=== PATIENT | female | born 1955 | race Caucasian/White ===

== ENCOUNTER 2018-05-16 14:15 | Emergency (ER) | payer SELFPAY ==
[2018-05-16 14:15] VITALS: BP 128/84; PULSE 111; RESP 16; TEMP 36.6; O2SAT 94; BMI 23.9
--- NOTE | 2018-05-16 14:35 | RAD_ITS ---
STUDY: X-RAY - LEFT FOOT CLINICAL: Female, 62 years old. STEPPED OFF STEPS AND SLIPPED THIS AFTERNOON, LATERAL REDNESS, PREVIOUSLY BROKE 3 TOES A FEW YEARS AGO TECHNIQUE: 3 view(s) of the foot. COMPARISON: None. FINDINGS: Normal talus, calcaneus, and tarsal bones. Normal visualized subtalar, talonavicular, calcaneocuboid, tarsal and tarsometatarsal articulations. Normal metatarsi. Normal metatarsophalangeal joint of the great toe. Normal tibial and fibular sesamoid bones. Normal interphalangeal joint of the great toe. Normal phalanges of the great toe. Normal second through fifth metatarsophalangeal joints. Normal interphalangeal joints and phalanges of the lesser toes. The soft tissue structures are unremarkable. RAD/Foot min 3 Views IMPRESSION: Normal x-ray examination of the foot. Electronically Signed: Aleksandr Golden MD at 14:58 EDT Tel , Service support ,
--- NOTE | 2018-05-16 15:24 | ED.DCSUM_ITS ---
- ER Visit Summary Date of Service: 05/16/18 Chief Complaint: [Injury to left foot] History of Present Illness: The patient is a 62 F [presents the emergency department with complaint of an injury to her left foot and ankle that occurred approximately 1 PM today when she was walking her dog. Patient states that she slipped on some wet grass twisting her foot and ankle. Patient able to bear some weight but very painful. Patient denies any other injuries.] Physical Examination: [HEENT-PERRLA, EOMI. Cranial nerves II through XII grossly intact. TMs clear. Mucous membranes moist. No adenopathy. Cardiovascular-regular rate and rhythm without murmur or ectopy Lungs-clear to auscultation, chest wall stable without crepitus or subcu emphysema Abdomen-normoactive bowel sounds, soft, nontender, no rebound or rigidity, no peritoneal signs. Extremities-intact ?4, normal range of motion, normal pulses. Left foot and ankle-patient has tenderness palpation over the dorsal lateral aspect of the foot. Patient has no tenderness at the proximal fibular head. She has no tende rness over the medial or lateral malleolus. She does have some mild tenderness over the base of the fifth metatarsal. No obvious deformity. There is no ecchymosis or bruising. She is nervously intact distally. Test Results: [The left foot obtained were normal] Emergency Department Course and Treatment: [Patient was given a postop shoe] Treatment Plan: [Patient advised to ice and elevate the extremity. Patient will take Tylenol for discomfort at home.] Disposition: [Discharged home in stable condition. Patient advised to follow-up with primary care physician within next 5-7 days.] Impression: [Left foot sprain] This note was generated with [employer] dictation software. It may contain incorrect words, spelling, and punctuation that were not noted in review of the chart prior to signing ED Disposition - Plan for ED Patient: Chief Complaint: Lower Extremity Injury Referrals: Tez Lee MD [Primary Care Provider] -
--- NOTE | 2018-05-16 15:24 | ED.DEP ---
ED Disposition - Plan for ED Patient: Chief Complaint: Lower Extremity Injury Instructions: ED Sprain Foot Referrals: Tez Lee MD [Primary Care Provider] - 5-7 Days
[2018-05-16 15:30] VITALS: RESP 14
== END 2018-05-16 15:30 | disposition home or self-care (01) ==
PROVIDERS: Emergency Provider Emergency Medicine; Family Provider Family Medicine; PCP Family Medicine
DX: S93.602A Unspecified sprain of left foot, initial encounter (principal); W01.0XXA Fall on same level from slipping, tripping and stumbling without subsequent striking against object, initial encounter; Y93.K1 Activity, walking an animal; Y92.9 Unspecified place or not applicable; Y99.8 Other external cause status; J44.9 Chronic obstructive pulmonary disease, unspecified; Z72.0 Tobacco use
CPT/HCPCS: 73630; 99282

== ENCOUNTER 2018-09-17 09:02 | Inpatient (IN) | payer SELFPAY ==
[2018-09-17] VITALS (10 sets, daily range): BP systolic 94–137; BP diastolic 53–74; PULSE 84–112; RESP 15–20; TEMP 36.1–38.3; O2SAT 92–98; BMI 24.6; BMI 22.0; BMI 22.6
--- NOTE | 2018-09-17 09:14 | RAD_ITS ---
STUDY: X-RAY CHEST REASON FOR EXAM: Female, 62 years old. Flulike symptoms. Cough and fever. TECHNIQUE: Single AP portable view of the chest. COMPARISON: None. FINDINGS: EKG electrodes are seen. There is evidence of emphysematous changes in both lungs worse in the right upper lobe with bullous changes. Increased markings at the lung bases suggestive of bibasilar scarring. Prior surgery in the medial left upper lobe. Blunting of the left costophrenic angle. Normal size heart. Normal mediastinum and bel. Normal visualized pulmonary arteries. There is atherosclerotic calcification of the aortic arch with tortuosity. There is a dextroscoliosis of the thoracic spine. Prior jose fixation of the thoracic spine. Normal visualized ribs, clavicles, and shoulders. There is no demonstrated abnormality of the visualized soft tissue structures of the upper abdomen. RAD/Chest 1 View (Portable) IMPRESSION: Hyperinflation. Emphysematous changes worse in the right upper lobe with bullous formation. Prior surgical changes in the left upper lobe and left apical pleural thickening and blunting of the left costophrenic angle. Electronically Signed: Thee Vu MD at 9:46 EST , Service support ,
--- NOTE | 2018-09-17 09:15 | EKG12_ITS ---
Test Reason : Blood Pressure : / mmHG Vent. Rate : 097 BPM Atrial Rate : 097 BPM P-R Int : 126 ms QRS Dur : 074 ms QT Int : 354 ms P-R-T Axes : 076 003 067 degrees QTc Int : 449 ms Normal sinus rhythm Possible Left atrial enlargement Borderline ECG Confirmed by LORENZO SCHROEDER, FRANK ([id number]), managing editor JESSE MEEKS ([id number]) on 09/19/2018 1:50:08 PM Referred By: CONCEPCION Confirmed By:FRANK VENTURA MD
--- NOTE | 2018-09-17 09:18 | ED.DCSUM_ITS ---
- ER Visit Summary Date of Service: 09/17/18 Chief Complaint: Shortness of breath History of Present Illness: The patient is a 62 F with shortness of breath for about a week gradually getting worse, she had a temperature of 104 yesterday. She was found to be hypoxic per EMS. She was diagnosed with COPD in the past she is not on steroids. No abdominal pain or urinary symptoms. No headache neck pain or neck stiffness Physical Examination: She appears in some distress, she is on 2 L nasal cannula Dry mucous membranes, no obvious facial deformity, some rhinorrhea No C-spine tenderness supple neck. Regular rate and rhythm without any obvious murmurs Patient has diminished breath sounds, bilateral wheezing Abdomen soft and nontender no guarding or rebound Moves all extremities without any difficulty or pain. Skin does not show any obvious rashes or lesions, no trauma. Alert oriented ?3 with no gross focal deficit Emergency Department Course and Treatment: Patient was given nebulizers, she is found to have influenza A. She remains hypoxic and oxygen dependent, therefore patient will be admitted. Symptoms started a week ago thus I do not believe Tamiflu is warranted. Disposition: To the hospital in guarded condition Impression: Influenza A Hypoxia This note was generated with [employer] dictation software. It may contain incorrect words, spelling, and punctuation that were not noted in review of the chart prior to signing ED Disposition - Plan for ED Patient: Referrals: Tez Lee MD [Primary Care Provider] -
[2018-09-17 09:26] LABS: Absolute Lymphocyte Count 1.69 X10^3/ul (0.83-4.51); Absolute Neutrophil Count 7.8 X10^3/uL (2.0-7.7); Basophil# 0.03 X10^3/uL; Basophil% 0.3 % (0-1); Eosinophil# 0.02 X10^3/uL; Eosinophils% 0.2 % (0-5); Hematocrit 42.4 % (37-47); Hemoglobin 14.7 g/dl (12.0-15.0); Lymphocyte # 1.69 X10^3/ul (4.0); Lymphocyte % 15.8 % (19-41); Mean Corp Hgb Conc 34.7 g/gl (32-36); Mean Corpuscular Hgb 31.6 pg (27.0-32.0); Mean Corpuscular Volume 91.2 fL (81-99); Mean Platelet Vol. 8.8 fl (6.2-12.0); Monocyte# 1.17 X10^3/uL; Monocyte% 10.9 % (0-10); Neutrophil # 7.79 X10^3/uL (2.7-7.7); Neutrophil % 72.5 % (47-70); Platelet Count 228 K/mm3 (150-450); RBC Distribution Width CV 13.9 % (11.6-14.6); RBC Distribution Width SD 45.7 fl (35.1-43.9); Red Blood Count 4.65 M/mm3 (4.2-5.4); White Blood Count 10.7 K/mm3 (4.4-11.0)
[2018-09-17 09:27] LABS: POSITIVE COUNT NO; POSITIVE DIFFERENTIAL NO; POSITIVE MORPHOLOGY NO
[2018-09-17] MEDS: Ipratropium/Albuterol Sulfate 3 ML AMPUL.NEB INHALATION ×3 (09:38→19:38)
[2018-09-17 09:43] LABS: ALB/GLOB Ratio 0.5 RATIO (0.9-2.4); AST(SGOT) 35 U/L (15-37); Alanine Aminotransfer ALT/SGPT 17 U/L (13-56); Albumin, Serum 2.8 g/dL (3.2-5.0); Alkaline Phosphatase 103 U/L (45-117); Anion Gap 9 (5-15); BUN 12 mg/dL (7-18); Chloride 105 mmol/L (98-107); Creatinine, Serum 0.86 mg/dL (0.55-1.02); EST Glomerular Filtration Rate 71 mL/min (>60); Est Glom Filt Rate - Afr Amer 86 mL/min (>60); Estimated Creatinine Clearance 56.11 ml/min; Globulin 5.1 g/dL (2.2-4.2); Glucose 95 mg/dL (74-106); Potassium 3.7 mmol/L (3.5-5.1); Protein, Total 7.9 g/dL (6.4-8.2); Sodium Level 135 mmol/L (136-145)
[2018-09-17 09:47] LABS: Lactic Acid 1.3 mmol/L (0.4-2.0)
[2018-09-17 09:54] LABS: BNP,B-Type NATRIURETIC PEPTIDE 43.6 pg/mL (0-100)
--- NOTE | 2018-09-17 10:42 | NURSING ---
DR COLEMAN GRULLON
--- NOTE | 2018-09-17 10:53 | NURSING ---
Davy CEE INFLUENZA, HYPOXIA, COPD EXAC
[2018-09-17] MEDS: Oseltamivir Phosphate 75 MG Capsule PO ×2 (11:07→21:07)
--- NOTE | 2018-09-17 12:21 | CASEMGMT ---
Social Work Note Per steam shovelman questions, pt has completed HCPOA and LW but hasn't provided copies to [facility] but is able to bring in copies. Emilie Wade CRAYON PAINTER, ETL DATABASE DEVELOPER
[2018-09-17] MEDS: Enoxaparin 40 MG/0.4 ML Syringe SC (13:38)
[2018-09-17] MEDS: predniSONE 20 MG Tablet 40 MG PO (13:38)
[2018-09-17] MEDS: Acetaminophen 325 MG Tablet 650 MG PO (15:03)
[2018-09-17] MEDS: 0.9% NaCl Peripheral Flush Adult/Peds IV (15:03)
[2018-09-17] MEDS: Benzonatate 100 MG Capsule PO ×2 (15:03→21:07)
[2018-09-17] MEDS: Ondansetron 4 MG/2 ML Vial IV (15:03)
--- NOTE | 2018-09-17 17:57 | HP.PCM_ITS ---
Problem List (1) Influenza A Status: Acute (2) COPD exacerbation Status: Chronic History of Present Illness Date of Admission: 09/17/18 Chief Complaint: Shortness of breath The patient is a 62 year old F with a history as below who presented with a one- week history of shortness of breath and not feeling well. She states that her grandson was diagnosed with flu a on and on Monday she developed a fever. She does not have a primary care physician because she does not have health insurance and not think that she would qualify for a primary care physician. She states that she does not carry any medical diagnoses though she has not seen the primary care physician in many years. She states that she presented today because of fevers and worsening shortness of breath as well as chills. She denies any chest pain. In the ER she was found to be positive for influenza A, without a leukocytosis. Troponin was negative as was a BNP. Past Medical History Past Medical History (Chronic Problems): Chronic Problems COPD exacerbation (Chronic) Allergies azithromycin Allergy (Verified 09/17/18 09:14) Hives cimetidine [From Tagamet] Allergy (Verified 09/17/18 09:14) Hives cimetidine HCl [From Tagamet] Allergy (Verified 09/17/18 09:14) Hives MICRODANTIN Allergy (Uncoded 09/17/18 09:14) Hives Home Medications: Ambulatory Orders Medication Instructions Recorded NK 09/17/18 Surgical History: - - Spine surgery for scoliosis, pleurodesis for blebs and spontaneous pneumothorax Smoking Status: Current every day smoker Tobacco Use: Cigarettes Alcohol: None Drugs: None - *Family History Maternal History Items: Cancer, Heart Disease Paternal History Items: Heart Disease Review of Systems Constitutional: Reports: Chills, Fever HEENT: Denies: Head Aches, Sinus Congestion, Sinus Drainage Cardiovascular: Denies: Chest Pain, Palpitations Respiratory: Reports: Shortness of Breath. Denies: Cough, Shortness of breath at rest, Sputum production Gastrointestinal: Reports: Diarrhea. Denies: Abdominal Pain, Nausea, Vomiting Genitourinary: Denies: Dysuria Musculoskeletal: Denies: Joint Pain, Joint Tenderness Skin: Denies: Rash, Wounds Neurological: Denies: Numbness, Tingling, Focal weakness Psychiatric: Denies: Anxiety, Depression Hematologic/ Lymphatic: Denies: Easy Bruising, Easy Bleeding VTE Information - Inpt Only VTE Present on Admission: No Patient Problems: Active and Suspected Problems Influenza A (Acute) - Physical Exam General: Alert, Oriented x3, Cooperative, No apparent distress HEENT: Atraumatic, PERRLA, EOMI, Normocephalic Oral: Moist Mucosa Neck: Supple, No JVD Lungs: No rhonchi, No rales, Diminished, Wheezes, - - Poor air movement Cardiovascular: Regular rate, Regular Rhythm, Normal S1, Normal S2, No murmurs, No Ectopic Activity Abdomen: Soft, Non Tender, Non-Distended, No Hepato-splenomegaly Extremities: No edema, Capillary Refill Less than 3 Seconds Skin: No rashes, No breakdown Neurological: Neuro grossly intact, Sensory exam intact to light touch and pain Psych/Mental Status: Normal Affect, Appropriate Vital Signs Temp Pulse Resp BP Pulse Ox 98.8 F 87 18 109/66 94 09/17/18 17:12 09/17/18 17:12 09/17/18 17:12 09/17/18 17:12 09/17/18 17:12 Oxygen Flow Rate (L/min) 2 Oxygen Delivery Method Room Air Weight: 127 lb 10.362 oz Body Mass Index (BMI) 22.6 Intake and Output for Last 24 Hours 09/15/18 09/16/18 09/17/18 23:59 23:59 23:59 Output Total 100 / 100 Balance -100 / -100 Microbiology Past 72 Hours 09/17/18 09:25 Influenza Types A,B Direct FA (SARINA) - Final Mucosa - Nose Influenzae A Laboratory Tests Past 24 Hrs 09/17/18 09/17/18 09/17/18 09:15 09:15 09:15 WBC 10.7 RBC 4.65 Hgb 14.7 Hct 42.4 MCV 91.2 MCH 31.6 MCHC 34.7 RDW 13.9 RDW Differential 45.7 H Plt Count 228 MPV 8.8 Immature Gran % (Auto) 0.300 Neut % (Auto) 72.5 H Lymph % (Auto) 15.8 L [place] % (Auto) 10.9 H Eos % (Auto) 0.2 Baso % (Auto) 0.3 Absolute Neuts (auto) 7.8 H Absolute Lymphs (auto) 1.69 Total Counted Not Reportable Sodium 135 L Potassium 3.7 Chloride 105 Carbon Dioxide 21.0 Anion Gap 9 BUN 12 Creatinine 0.86 Estim Creat Clear Calc 56.11 Est GFR (MDRD) Af Amer 86 Est GFR (MDRD) Non-Af 71 BUN/Creatinine Ratio 14.0 Glucose 95 Lactic Acid 1.3 Calcium 8.0 L Total Bilirubin 0.40 AST 35 ALT 17 Alkaline Phosphatase 103 Troponin I < 0.015 B-Natriuretic Peptide Total Protein 7.9 Albumin 2.8 L Globulin 5.1 H Albumin/Globulin Ratio 0.5 L 09/17/18 09:15 WBC RBC Hgb Hct MCV MCH MCHC RDW RDW Differential Plt Count MPV Immature Gran % (Auto) Neut % (Auto) Lymph % (Auto) [place] % (Auto) Eos % (Auto) Baso % (Auto) Absolute Neuts (auto) Absolute Lymphs (auto) Total Counted Sodium Potassium Chloride Carbon Dioxide Anion Gap BUN Creatinine Estim Creat Clear Calc Est GFR (MDRD) Af Amer Est GFR (MDRD) Non-Af BUN/Creatinine Ratio Glucose Lactic Acid Calcium Total Bilirubin AST ALT Alkaline Phosphatase Troponin I B-Natriuretic Peptide 43.6 Total Protein Albumin Globulin Albumin/Globulin Ratio Assessment/Plan All Active Problems Influenza A (Acute) 1. Acute hypoxic respiratory failure secondary to influenza A and COPD exacerbation -On presentation she had an oxygen saturation of 88% necessitating 2 L nasal cannula in the ER with good response -DuoNeb's as well as p.o. prednisone for her COPD, wean oxygen as able -Her symptoms started a week ago she did develop a fever until Monday therefore will consider within the window of treatment with Tamiflu 5 days -Discussed with her that she needs to follow-up with a primary care physician, and having insurance is not necessary to have a PCP DVT: Lovenox Code Visit Inpatient E&M: 07027 Init Hosp L2
[2018-09-18] VITALS (9 sets, daily range): BP systolic 101–127; BP diastolic 54–79; PULSE 76–88; RESP 16–22; TEMP 36.6–37.1; O2SAT 94–98
[2018-09-18] MEDS: Benzonatate 100 MG Capsule PO (02:46)
[2018-09-18 05:53] LABS: Absolute Lymphocyte Count 1.62 X10^3/ul (0.83-4.51); Absolute Neutrophil Count 3.3 X10^3/uL (2.0-7.7); Basophil# 0.02 X10^3/uL; Basophil% 0.3 % (0-1); Hemoglobin 13.4 g/dl (12.0-15.0); Lymphocyte # 1.62 X10^3/ul (4.0); Lymphocyte % 28.2 % (19-41); Mean Corp Hgb Conc 33.5 g/gl (32-36); Mean Corpuscular Hgb 30.6 pg (27.0-32.0); Mean Corpuscular Volume 91.3 fL (81-99); Monocyte# 0.79 X10^3/uL; Monocyte% 13.7 % (0-10); Neutrophil # 3.32 X10^3/uL (2.7-7.7); Neutrophil % 57.8 % (47-70); Platelet Count 220 K/mm3 (150-450); RBC Distribution Width CV 13.8 % (11.6-14.6); Red Blood Count 4.38 M/mm3 (4.2-5.4); White Blood Count 5.8 K/mm3 (4.4-11.0)
[2018-09-18 05:58] LABS: POSITIVE COUNT NO; POSITIVE DIFFERENTIAL NO; POSITIVE MORPHOLOGY NO
[2018-09-18 06:05] LABS: Anion Gap 10 (5-15); BUN 12 mg/dL (7-18); BUN/Creat Ratio 16.9 RATIO (10-20); Calcium,Total 8.4 mg/dL (8.5-10.1); Chloride 107 mmol/L (98-107); Creatinine, Serum 0.71 mg/dL (0.55-1.02); EST Glomerular Filtration Rate 88 mL/min (>60); Est Glom Filt Rate - Afr Amer 107 mL/min (>60); Estimated Creatinine Clearance 67.96 ml/min; Glucose 120 mg/dL (74-106); Potassium 3.9 mmol/L (3.5-5.1); Sodium Level 141 mmol/L (136-145)
[2018-09-18] MEDS: Ipratropium/Albuterol Sulfate 3 ML AMPUL.NEB INHALATION ×3 (07:13→18:50)
[2018-09-18] MEDS: predniSONE 20 MG Tablet 40 MG PO (07:47)
[2018-09-18] MEDS: Acetaminophen 325 MG Tablet 650 MG PO (07:54)
--- NOTE | 2018-09-18 09:15 | CASEMGMT ---
ALEJANDRA SINHA Face to Face with patient for initial transition planning/care coordination assessment. ALEJANDRA SINHA introduced self and role at [facility]. Patient lying in bed, alert and oriented, daughter at bedside. Patient willing to participate in assessment and is able to answer all questions appropriately. Care providers, pharmacy, and demographics verified. Patient wishes to discharge home, denies need for home health at this time. Patient is selfpay and SW will follow-up with patient regarding Medicaid application. RN BHARATH encouraged patient to follow-up with job and family services. Patient states she has no further needs or concerns at this time. CM to follow for discharge planning needs that may arise. PCP: Jesus Specialists: None Preferred Pharmacy: [facility] Insurance: None Prescription Benefit: None Living Will/HPOA: Patient states Harmony lopes is HPOA LNOK: Daughter Living Arrangements: Daughter and her family live with patient in 1 story home, 3 steps to enter the home. Patient is independent at home. Transportation: Daughter DME/HHC: Patient states she has a shower chair and cane at home. Denies oxygen, bipap, cpap, or nebulizer at home. Denies use of HHC or SNF. Disposition Plan: Patient to discharge home with family support and follow-up plans in place. Emilie BOSWELL, RN, CM
--- NOTE | 2018-09-18 09:21 | PN_ITS ---
Patient Problems: Active and Suspected Problems Influenza A (Acute) Subjective: Feeling better today she has been decreased on her oxygen from 2 L to 1 L. She is continuing to cough that is nonproductive. She denies any fevers or chills. No chest pain Vitals/I&O's: Vital Signs Temp Pulse Resp BP Pulse Ox 98.8 F 79 18 103/54 L 97 09/18/18 07:48 09/18/18 07:48 09/18/18 07:48 09/18/18 07:48 09/18/18 07:48 Oxygen Flow Rate (L/min) 1 Oxygen Delivery Method Nasal Cannula Weight: 127 lb 10.362 oz Body Mass Index (BMI) 22.6 Intake and Output for Last 24 Hours 09/16/18 09/17/18 09/18/18 23:59 23:59 23:59 Intake Total 700 / 700 220 / 220 Output Total 800 / 800 100 / 100 Balance -100 / -100 120 / 120 General: Alert, Oriented x3, Cooperative, No apparent distress HEENT: Atraumatic, PERRLA, EOMI, Normocephalic Oral: Moist Mucosa Neck: Supple, No JVD Lungs: No rhonchi, No rales, Diminished, Wheezes, - -improved air movement Cardiovascular: Regular rate, Regular Rhythm, Normal S1, Normal S2, No murmurs, No Ectopic Activity Abdomen: Soft, Non Tender, Non-Distended, No Hepato-splenomegaly Extremities: No edema, Capillary Refill Less than 3 Seconds Skin: No rashes, No breakdown Neurological: Neuro grossly intact, Sensory exam intact to light touch and pain Psych/Mental Status: Normal Affect, Appropriate Microbiology Past 72 Hours 09/17/18 09:25 Mucosa - Nose Influenza Types A,B Direct FA (SARINA) - Final Influenzae A Laboratory Results 09/17/18 09:15: WBC 10.7, RBC 4.65, Hgb 14.7, Hct 42.4, MCV 91.2, MCH 31.6, MCHC 34.7, RDW 13.9, RDW Differential 45.7 H, Plt Count 228, MPV 8.8, Immature Gran % (Auto) 0.300, Neut % (Auto) 72.5 H, Lymph % (Auto) 15.8 L, [place] % (Auto) 10.9 H, Eos % (Auto) 0.2, Baso % (Auto) 0.3, Absolute Neuts (auto) 7.8 H, Absolute Lymphs (auto) 1.69, Total Counted Not Reportable 09/17/18 09:15: Sodium 135 L, Potassium 3.7, Chloride 105, Carbon Dioxide 21.0, Anion Gap 9, BUN 12, Creatinine 0.86, Estim Creat Clear Calc 56.11, Est GFR (MDRD) Af Amer 86, Est GFR (MDRD) Non-Af 71, BUN/Creatinine Ratio 14.0, Glucose 95, Calcium 8.0 L, Total Bilirubin 0.40, AST 35, ALT 17, Alkaline Phosphatase 103, Troponin I < 0.015, Total Protein 7.9, Albumin 2.8 L, Globulin 5.1 H, Albumin/Globulin Ratio 0.5 L 09/17/18 09:15: Lactic Acid 1.3 09/17/18 09:15: B-Natriuretic Peptide 43.6 09/18/18 05:23: WBC 5.8, RBC 4.38, Hgb 13.4, Hct 40.0, MCV 91.3, MCH 30.6, MCHC 33.5, RDW 13.8, RDW Differential 46.0 H, Plt Count 220, MPV 9.0, Immature Gran % (Auto) 0.000, Neut % (Auto) 57.8, Lymph % (Auto) 28.2, [place] % (Auto) 13.7 H, Eos % (Auto) 0.0, Baso % (Auto) 0.3, Absolute Neuts (auto) 3.3, Absolute Lymphs (auto) 1.62, Total Counted Not Reportable 09/18/18 05:23: Sodium 141, Potassium 3.9, Chloride 107, Carbon Dioxide 24.0, Anion Gap 10, BUN 12, Creatinine 0.71, Estim Creat Clear Calc 67.96, Est GFR (MDRD) Af Amer 107, Est GFR (MDRD) Non-Af 88, BUN/Creatinine Ratio 16.9, Glucose 120 H, Calcium 8.4 L Current Medications Acetaminophen (Tylenol) 650 mg PO Q4H PRN PRN PRN Reason: pain, fever Last Admin: 09/18/18 07:54 Dose: 650 mg Albuterol/Ipratropium (Duoneb) 3 ml INHALATION Q6HWA.RT RISHI Last Admin: 09/18/18 07:13 Dose: 3 ml Benzonatate (Tessalon Perle) 100 mg PO 4X/DAY PRN PRN PRN Reason: COUGH Last Admin: 09/18/18 02:46 Dose: 100 mg Enoxaparin Sodium (Lovenox) 40 mg SC DAILY@1000 [facility] Last Admin: 09/17/18 13:38 Dose: 40 mg Magnesium Hydroxide (Milk Of Magnesia) 30 ml PO DAILY PRN PRN PRN Reason: Constipation Nutritional Formula (Lactose Free) (Ensure Clear) 120 ml PO TIDCM [facility] Last Admin: 09/18/18 07:47 Dose: 120 ml Ondansetron HCl (Zofran) 4 mg IV Q8H PRN PRN PRN Reason: NAUSEA Last Admin: 09/17/18 15:03 Dose: 4 mg Oseltamivir Phosphate (Tamiflu) 75 mg PO BID [facility] Stop: 09/22/18 10:01 Last Admin: 09/17/18 21:07 Dose: 75 mg Prednisone () 40 mg PO DAILY@0800 [facility] Last Admin: 09/18/18 07:47 Dose: 40 mg Sodium Chloride () 5 - 15 ml IV UD PRN PRN Reason: SALINE FLUSH Last Admin: 09/17/18 15:03 Dose: 10 ml Medical Necessity - Tobacco Use Smoking Status: Current every day smoker Tobacco Use: Cigarettes Assessment/Plan All Active Problems Influenza A (Acute) 1. Acute hypoxic respiratory failure secondary to influenza A and COPD exacerbation -On presentation she had an oxygen saturation of 88% necessitating 2 L nasal cannula in the ER with good response -DuoNeb's as well as p.o. prednisone for her COPD, wean oxygen as able -Her symptoms started a week ago she did develop a fever until Monday therefore will consider within the window of treatment with Tamiflu 5 days -Discussed with her that she needs to follow-up with a primary care physician, and having insurance is not necessary to have a PCP -If can wean off to room air today can plan for discharge later this afternoon if not we will plan for discharge tomorrow DVT: Lovenox Code Visit Inpatient E&M: 64655 Subs Hosp L2
[2018-09-18] MEDS: Enoxaparin 40 MG/0.4 ML Syringe SC (10:21)
[2018-09-18] MEDS: Oseltamivir Phosphate 75 MG Capsule PO ×2 (10:21→22:30)
--- NOTE | 2018-09-18 11:00 | CASEMGMT ---
Social Work Note Pt is listed as being self-pay. ANNA met with pt. SW introduced self and role at [facility]. Pt's daughter present in room but gave this worker permission to speak to her in front of her guest. Pt confirms that she is self-pay. Pt states that her daughter and her live with her so she wouldn't qualify for Medicaid as she would make too much. SW encouraged pt to follow up with [employer] to confirm if she would qualify for Medicaid or not. ANNA provided pt with additional resources including [employer], [employer], Prescription assistance resources, and [facility] information and medicaid application. Pt denied additional needs or concerns at this time. Emilie Wade PICCOLO MECHANIC, DORMITORY SUPERVISOR
[2018-09-18] MEDS: guaiFENesin 600 MG Tablet PO ×2 (15:04→22:30)
[2018-09-18] MEDS: 0.9% NaCl Peripheral Flush Adult/Peds IV (22:30)
[2018-09-19] VITALS (8 sets, daily range): BP systolic 97–143; BP diastolic 47–74; PULSE 74–115; RESP 18–22; TEMP 36.1–38.3; O2SAT 90–96
[2018-09-19] MEDS: Ondansetron 4 MG/2 ML Vial IV (00:44)
[2018-09-19] MEDS: 0.9% NaCl Peripheral Flush Adult/Peds IV (00:44)
[2018-09-19] MEDS: Acetaminophen 325 MG Tablet 650 MG PO ×2 (03:03→09:41)
[2018-09-19] MEDS: Benzonatate 100 MG Capsule PO (03:03)
[2018-09-19] MEDS: Ipratropium/Albuterol Sulfate 3 ML AMPUL.NEB INHALATION ×2 (03:40→08:45)
[2018-09-19] MEDS: predniSONE 20 MG Tablet 40 MG PO (08:29)
--- NOTE | 2018-09-19 09:20 | DCINST_ITS ---
- Discharge Diagnoses Current Active Problems: Current Active and Chronic Problems Influenza A (Acute) COPD exacerbation (Chronic) You will use the following diet at home:: No restrictions Your food should be the consistency of: Regular Your liquids should be the consistency of: Regular/Thin Discharge Activity: Return to Normal Activity Call your doctor if you observe: Fever of 101 or Higher, Shortness of breath, Di zziness, Chest pain, Increased palpitations (irregular heartbeat) Allergies/Adverse Reactions: Allergies azithromycin Allergy (Verified 09/17/18 09:14) Hives cimetidine [From Tagamet] Allergy (Verified 09/17/18 09:14) Hives cimetidine HCl [From Tagamet] Allergy (Verified 09/17/18 09:14) Hives MICRODANTIN Allergy (Uncoded 09/17/18 09:14) Hives Medications to take at Discharge Albuterol IH (ProAir) [Proair Hfa] 1 - 2 puff INHALATION Q4H PRN PRN #1 inhaler 09/19/18 Oseltamivir Phosphate [Tamiflu] 75 mg PO BID #6 capsule 09/19/18 Prednisone 20 mg PO BID #10 tablet 09/19/18 The following prescriptions were given: Albuterol IH (ProAir) [Proair Hfa] 1 - 2 puff INHALATION Q4H PRN PRN #1 inhaler PRN Reason: Wheezing Oseltamivir Phosphate [Tamiflu] 75 mg PO BID #6 capsule Prednisone 20 mg PO BID #10 tablet Primary Care Physician: Tez Lee MD [Primary Care Provider] - Please follow up with your Primary Care Physician in: 3-5 days Test Results: Test results from this visit will be discussed in further detail at your follow- up appointment, if applicable.
--- NOTE | 2018-09-19 09:20 | PCM.DC.SUM ---
Discharge Date and Diagnosis - Problem List Patient Problems: Active and Suspected Problems Influenza A (Acute) Date of Admission: 09/17/18 Date of Discharge: 09/19/18 - Primary Discharge Diagnosis Active and Suspected Problems Influenza A (Acute) - Secondary Discharge Diagnosis Chronic Problems COPD exacerbation (Chronic) Hospital Course and Treatment Imaging Results: CXR: IMPRESSION: Hyperinflation. Emphysematous changes worse in the right upper lobe with bullous formation. Prior surgical changes in the left upper lobe and left apical pleural thickening and blunting of the left costophrenic angle. Consults: None Operations: None Procedures: None Summary of Care Provided: HPI: The patient is a 62 year old F with a history as below who presented with a one-week history of shortness of breath and not feeling well. She states that her grandson was diagnosed with flu a on and on Monday she developed a fever. She does not have a primary care physician because she does not have health insurance and not think that she would qualify for a primary care physician. She states that she does not carry any medical diagnoses though she has not seen the primary care physician in many years. She states that she presented today because of fevers and worsening shortness of breath as well as chills. She denies any chest pain. In the ER she was found to be positive for influenza A, without a leukocytosis. Troponin was negative as was a BNP. Hospital Course: 1. Acute hypoxic respiratory failure secondary to influenza A and COPD [id number] female who presented from home with 1 week history of shortness of breath however is 2 days prior to admission she also developed a fever and her grandson had come back positive for influenza A. When she was in the ER she test positive for influenza A and so because she developed a fever so close to admission I elected to treat with Tamiflu for 5 days which she will be discharged on to complete her 5-day course. She was also noted to have significant wheezing and coarse breath sounds and was started on DuoNeb inhaler as well as oral prednisone. She did improve and on the day of discharge off of all supplemental oxygen. She was given a prescription for 5 more days of prednisone as well as an albuterol inhaler and was discussed that she should take 2 puffs every 4 hours as needed for wheezing. He is to follow-up with her primary care physician in 3-5 days. Patient Problems: Active and Suspected Problems Influenza A (Acute) Objective: General: Alert, Oriented x3, Cooperative, No apparent distress HEENT: Atraumatic, PERRLA, EOMI, Normocephalic Oral: Moist Mucosa Neck: Supple, No JVD Lungs: No rhonchi, No rales, Diminished, Wheezes, - -improved air movement Cardiovascular: Regular rate, Regular Rhythm, Normal S1, Normal S2, No murmurs, No Ectopic Activity Abdomen: Soft, Non Tender, Non-Distended, No Hepato-splenomegaly Extremities: No edema, Capillary Refill Less than 3 Seconds Skin: No rashes, No breakdown Neurological: Neuro grossly intact, Sensory exam intact to light touch and pain Psych/Mental Status: Normal Affect, Appropriate - Physical Exam Vital Signs Temp Pulse Resp BP Pulse Ox 97 F L 110 H 20 H 97/47 L 90 09/19/18 08:27 09/19/18 08:45 09/19/18 08:45 09/19/18 08:27 09/19/18 08:45 Oxygen Flow Rate (L/min) 2 Oxygen Delivery Method Nasal Cannula Weight: 127 lb 10.362 oz Body Mass Index (BMI) 22.6 Intake and Output for Last 24 Hours 09/17/18 09/18/18 09/19/18 23:59 23:59 23:59 Intake Total 700 / 700 1820 / 1820 1210 / 1210 Output Total 800 / 800 100 / 100 2200 / 2200 Balance -100 / -100 1720 / 1720 -990 / -990 Microbiology Past 72 Hours 09/17/18 09:25 Influenza Types A,B Direct FA (SARINA) - Final Mucosa - Nose Influenzae A Discharge Activity: Return to Normal Activity Call your doctor if you observe: Fever of 101 or Higher, Shortness of breath, Dizziness, Chest pain, Increased palpitations (irregular heartbeat) Home Medications: Medications to take at Discharge Albuterol IH (ProAir) [Proair Hfa] 1 - 2 puff INHALATION Q4H PRN PRN #1 inhaler 09/19/18 Oseltamivir Phosphate [Tamiflu] 75 mg PO BID #6 capsule 09/19/18 Prednisone 20 mg PO BID #10 tablet 09/19/18 Following Prescrptions Were Given to Patient: Albuterol IH (ProAir) [Proair Hfa] 1 - 2 puff INHALATION Q4H PRN PRN #1 inhaler PRN Reason: Wheezing Oseltamivir Phosphate [Tamiflu] 75 mg PO BID #6 capsule Prednisone 20 mg PO BID #10 tablet Primary Care Physician: Tez Lee MD [Primary Care Provider] - Please follow up with your Primary Care Physician in: 3-5 days Disposition: Home Minutes spent on discharge:: 35 Patient Condition:: Stable Medical Necessity - Tobacco Use Smoking Status: Current every day smoker Tobacco Use: Cigarettes Meaningful Use Info Meaningful Use Diagnoses (Choose all that apply): None applicable Code Visit Inpatient E&M: 91416 Disch Hosp
[2018-09-19] MEDS: Oseltamivir Phosphate 75 MG Capsule PO (09:41)
[2018-09-19] MEDS: Enoxaparin 40 MG/0.4 ML Syringe SC (09:41)
[2018-09-19] MEDS: guaiFENesin 600 MG Tablet PO (09:41)
[2018-09-19] MEDS: Magnesium Hydroxide 30 ML UDC PO (10:40)
--- NOTE | 2018-09-20 15:25 | CASEMGMT ---
ALEJANDRA SINHA Discharge Follow-up Phone Call: NIDA: Yael Strata: 9 Call Date: 09/20/18 Discharge Date: 09/19/18 Time of Call: 1520 Duration: 2 minutes ? Admitting Diagnosis: Influenza, COPD exac This ALEJANDRA SINHA contacted pt via phone for discharge follow up. Pt deferred questions to her daughter Harmony. Harmony states she was able to obtain pt's prescriptions from the hospital pharmacy prior to discharge. States her mother's breathing has been coming along and denies any concerns. Confirmed pt's follow-up appointment. Harmony denied any further questions or need for assistance. Bertrand Hopkins RN
== END 2018-09-19 11:38 | disposition home or self-care (01) | DRG 193 ==
LOC: ED 09:28 → MS2 10:54
PROVIDERS: Admitting Provider Family Medicine; Emergency Provider Emergency Medicine; Family Provider Family Medicine; PCP Family Medicine; Visit Provider Family Medicine
DX: J10.1 Influenza due to other identified influenza virus with other respiratory manifestations (principal); J96.01 Acute respiratory failure with hypoxia; J44.1 Chronic obstructive pulmonary disease with (acute) exacerbation; F17.210 Nicotine dependence, cigarettes, uncomplicated
CPT/HCPCS: 36415; 71045; 80048; 80053; 83605; 83880; 84484; 85025; 87040; 87804; 93005; 94640; 97802; 99284; 99406; A4216; J2405

== ENCOUNTER 2018-09-24 10:43 | Inpatient (IN) | payer SELFPAY ==
[2018-09-17 11:45] VITALS: BMI 22.6
[2018-09-24] VITALS (19 sets, daily range): BP systolic 117–155; BP diastolic 64–96; PULSE 68–85; RESP 15–22; TEMP 36.6–37.6; O2SAT 90–95; BMI 22.8; BMI 22.1
--- NOTE | 2018-09-24 10:57 | EKG12_ITS ---
Test Reason : SOB Blood Pressure : / mmHG Vent. Rate : 068 BPM Atrial Rate : 068 BPM P-R Int : 130 ms QRS Dur : 074 ms QT Int : 418 ms P-R-T Axes : 067 -08 062 degrees QTc Int : 444 ms Normal sinus rhythm with sinus arrhythmia Possible Left atrial enlargement Borderline ECG Confirmed by LORENZO SCHROEDER, FRANK ([id number]), editor continuity and script JESSE MEEKS ([id number]) on 09/28/2018 8:59:33 AM Referred By: BORA Confirmed By:FRANK VENTURA MD
--- NOTE | 2018-09-24 10:59 | ED.VISSUMM ---
- ER Visit Summary Date of Service: 09/24/18 Chief Complaint: Shortness of breath History of Present Illness: The patient is a 62 F who presents with shortness of breath that became worse today. Patient was recently admitted here for COPD exacerbation and influenza. Patient states she finished her course of prednisone and Tamiflu today. Patient states her breathing is worse with any exertion. Patient states she gets short of breath going from the couch to the bedside commode. Patient admits to a cough with some green and brown sputum. Patient denies any fevers or chills. Patient states she does have some mild pain in her chest when she gets short of breath. Patient states this resolved after approximately 1 minute of breath. Patient admits to nausea but denies any vomiting. Physical Examination: Vital signs are stable. Patient is afebrile. Patient is in no acute distress. Oral mucosa is pink and moist. Neck is supple. Trachea is midline. There is no JVD noted. Heart was regular rate and rhythm. Radial pulses are equal bilaterally. Lungs are diminished and equal bilateral. Abdomen is soft. Bowel sounds are normal. There is no tenderness. There is no guarding noted. Skin is warm dry. Cranial nerves II through XII are intact. There are no focal motor or sensory deficits noted. The remaining physical exam is within normal limits. Test Results: Chest x-ray shows a left lower lobe infiltrate. CBC shows a leukocytosis of 16.3. This may be due to the prednisone that she just finished taking. Troponin was normal. Metabolic profile was normal. EKG showed normal sinus rhythm with a rate of 68. There are no acute ST or T wave changes. This is unchanged compared to the previous EKG dated 09/17/2018. Emergency Department Course and Treatment: Patient was given a dose of Levaquin here. Case was discussed with the hospitalist. Patient will be admitted for healthcare associated pneumonia. He requested the patient be admitted to the [facility] floor with telemetry. Disposition: Admit to hospital Impression: 1. Healthcare associated pneumonia This note was generated with [email or web address] dictation software. It may contain incorrect words, spelling, and punctuation that were not noted in review of the chart prior to signing ED Disposition - Plan for ED Patient: Disposition: Acute Care Hospital [facility] Diagnosis: Healthcare-associated pneumonia Referrals: Tez Lee MD [Primary Care Provider] -
[2018-09-24] MEDS: Ipratropium/Albuterol Sulfate 3 ML AMPUL.NEB INHALATION ×3 (11:13→19:24)
[2018-09-24 11:17] LABS: Absolute Lymphocyte Count 1.62 X10^3/ul (0.83-4.51); Absolute Neutrophil Count 13.2 X10^3/uL (2.0-7.7); Basophil# 0.03 X10^3/uL; Basophil% 0.2 % (0-1); Hematocrit 44.7 % (37-47); Hemoglobin 14.9 g/dl (12.0-15.0); Lymphocyte # 1.62 X10^3/ul (4.0); Mean Corp Hgb Conc 33.3 g/gl (32-36); Mean Corpuscular Hgb 30.7 pg (27.0-32.0); Mean Corpuscular Volume 92.2 fL (81-99); Monocyte# 1.36 X10^3/uL; Monocyte% 8.4 % (0-10); Neutrophil # 13.16 X10^3/uL (2.7-7.7); Neutrophil % 80.7 % (47-70); POSITIVE COUNT NO; POSITIVE DIFFERENTIAL NO; POSITIVE MORPHOLOGY NO; Platelet Count 403 K/mm3 (150-450); RBC Distribution Width CV 13.7 % (11.6-14.6); Red Blood Count 4.85 M/mm3 (4.2-5.4); White Blood Count 16.3 K/mm3 (4.4-11.0)
--- NOTE | 2018-09-24 11:20 | RAD_ITS ---
STUDY: X-RAY CHEST REASON FOR EXAM: Female, 62 years old. Dyspnea and shortness of breath. TECHNIQUE: AP and lateral views of the chest. COMPARISON: Comparison is made with prior study dated September 17, 2018. FINDINGS: EKG electrodes are seen. There is hyperinflation of the lungs consistent with chronic obstructive lung disease (COPD). There is evidence of bullous formation in the right upper lobe. This is unchanged. There is evidence of prior surgery in the left upper lobe with scarring. Stable increased interstitial scarring both lungs worse in the lower lobes with areas of confluence. Since prior study, there has been progressive increased markings in the left lower lobe. This may represent superimposed pneumonia. A 1.4 cm x 1.4 cm rounded nodular density is seen on the lateral view in the lower almost likely at the left lung base. Normal size heart. Normal mediastinum and bel. Normal visualized pulmonary arteries. There is atherosclerotic calcification of the aortic arch with tortuosity. Abisai jose fixation device is seen of the thoracic spine. Stable dextro scoliosis. Normal visualized ribs, clavicles, and shoulders. There is no demonstrated abnormality of the visualized soft tissue structures of the upper abdomen. RAD/Chest PA and Lateral IMPRESSION: Since prior study, there has been progressive infiltrate in the left lower lobe superimposed on chronic interstitial scarring and emphysematous changes worse in the right upper lobe. 1.4 cm x 1.4 cm nodular density presumably in the left lower lobe. Electronically Signed: Thee Vu MD at 12:26 EST , Service support ,
[2018-09-24 11:33] LABS: Anion Gap 5 (5-15); BUN 15 mg/dL (7-18); Calcium,Total 7.9 mg/dL (8.5-10.1); Chloride 105 mmol/L (98-107); Creatinine, Serum 0.58 mg/dL (0.55-1.02); EST Glomerular Filtration Rate 112 mL/min (>60); Est Glom Filt Rate - Afr Amer 136 mL/min (>60); Estimated Creatinine Clearance 83.19 ml/min; Glucose 106 mg/dL (74-106); Potassium 3.9 mmol/L (3.5-5.1); Sodium Level 138 mmol/L (136-145)
[2018-09-24] MEDS: levoFLOXacin IV 750 MG/150 ML BAG 100 MG IV (13:37)
--- NOTE | 2018-09-24 14:16 | PCM.HP.STD ---
Problem List (1) Scoliosis Status: Chronic (2) COPD (chronic obstructive pulmonary disease) Status: Chronic (3) Healthcare-associated pneumonia Status: Acute History of Present Illness Date of Admission: 09/24/18 Chief Complaint: Worsening shortness of breath. The patient is a 62 year old F with past medical history as mentioned above presented to the emergency room because of worsening shortness of breath. Patient was discharged from the hospital 4 days ago after admission for influenza A and probable COPD exacerbation. She states that since she was discharged, her breathing did not improve significantly, got worse over the last couple of days, it is mainly up on moderate exertion, progressed to become even at minimal exertion, associated with productive cough with green sputum and without relieving or aggravating factors. She denies fever or chills. She reported chest discomfort upon coughing. In the emergency department, she was afebrile, blood pressure and heart rate were stable, pulse ox was 92% on 2 L. Her routine blood work was remarkable for leukocytosis but patient has been on steroids, otherwise normal. One was negative. EKG revealed normal sinus rhythm without evidence of acute ischemic changes or cardiac arrhythmias. Chest x-ray revealed infiltrate on the left lower lobe with chronic edematous changes on both sides, 1.4 x 1.4 no acute in the left lower lobe. She is being admitted for healthcare associated pneumonia/post viral pneumonia. Past Medical History Past Medical History (Chronic Problems): Chronic Problems Scoliosis (Chronic) COPD (chronic obstructive pulmonary disease) (Chronic) Allergies azithromycin Allergy (Verified 09/24/18 10:47) Hives cimetidine [From Tagamet] Allergy (Verified 09/24/18 10:47) Hives cimetidine HCl [From Tagamet] Allergy (Verified 09/24/18 10:47) Hives nitrofurantoin [From Macrodantin] Allergy (Verified 09/24/18 14:04) Hives MICRODANTIN Allergy (Uncoded 09/24/18 10:47) Hives Home Medications: Ambulatory Orders Medication Instructions Recorded Albuterol IH (ProAir) [Proair Hfa] 1 - 2 puff INHALATION Q4H PRN PRN 09/19/18 #1 inhaler Acetaminophen [Tylenol Extra 1,000 mg PO Q4H PRN PRN 09/24/18 Strength] Surgical History: - - Spine surgery for scoliosis, pleurodesis for blebs and spontaneous pneumothorax Psychiatric History: No pertinent psych hx 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 Denies: Anorexia, Chills, Fever Eyes: Denies: Blurred vision, Double vision, Drainage, Redness HEENT: Denies: Difficulty Hearing, Ear Pain, Eye Pain, Nasal Congestion, Sore Throat Cardiovascular: Denies: Chest Pain, Chest Pressure, Heaviness, Light Headedness, Palpitations, Syncope Respiratory: Reports: Cough, Shortness of Breath, Shortness of breath upon exertion, Sputum production. Denies: Hemoptysis, Pleuritic Pain, Wheezing Gastrointestinal: Denies: Abdominal Pain, Constipation, Diarrhea, Nausea, Vomiting Genitourinary: Denies: Dysuria, Frequency, Hematuria Musculoskeletal: Denies: Arm Pain, Back Pain Skin: Denies: Dryness, Rash Neurological: Denies: Balance problems, Double vision, Change in Speech, Slurred speech, Confusion, Headaches, Incoordination Psychiatric: Denies: Anxiety, Depression VTE Information - Inpt Only VTE Present on Admission: No VTE Mechan Device Prophylaxis: None VTE Pharm Prophylaxis ordered?: Yes Patient Problems: Active and Suspected Problems Healthcare-associated pneumonia (Acute) - Physical Exam General: Alert, Oriented x3, Cooperative, No apparent distress HEENT: Atraumatic, PERRLA, EOMI, Normocephalic Oral: Moist Mucosa, No Gingival or Mucosal Lesions/ Ulcerations Neck: Supple, No JVD, Negative Carotid Bruits, Trachea Midline, Thyroid Normal Size and Texture Lungs: No wheeze, Diminished, Rales, Rhonchi, Short of Breath, - - Decreased breath sounds bilateral, coarse crackles in the left base, occasional rhonchi. Cardiovascular: Regular rate, Regular Rhythm, Normal S1, Normal S2, PMI Normal Abdomen: Bowel Sounds Present, Soft, Non Tender, Non-Distended, No Hepato-splenomegaly, Obese Extremities: No clubbing, No cyanosis, No edema Skin: No rashes, No breakdown Lymphatic: No Cervical, Supraclavicular, or Inguinal Adenopathy Neurological: Cranial nerves II-XII grossly intact, Motor Exam 5/5 strength throughout Psych/Mental Status: Normal Affect, Appropriate, Alert and oriented to time, place, person, mood and affect Vital Signs Temp Pulse Resp BP Pulse Ox 98.1 F 79 20 H 153/96 H 92 09/24/18 14:14 09/24/18 14:14 09/24/18 14:14 09/24/18 14:14 09/24/18 14:14 Oxygen Flow Rate (L/min) 2 Oxygen Delivery Method Room Air Weight: 128 lb 11.999 oz Body Mass Index (BMI) 22.8 Laboratory Tests Past 24 Hrs 09/24/18 09/24/18 11:00 11:00 WBC 16.3 H RBC 4.85 Hgb 14.9 Hct 44.7 MCV 92.2 MCH 30.7 MCHC 33.3 RDW 13.7 RDW Differential 46.0 H Plt Count 403 MPV 9.0 Immature Gran % (Auto) 0.700 Neut % (Auto) 80.7 H Lymph % (Auto) 10.0 L [place] % (Auto) 8.4 Eos % (Auto) 0.0 Baso % (Auto) 0.2 Absolute Neuts (auto) 13.2 H Absolute Lymphs (auto) 1.62 Total Counted Not Reportable Sodium 138 Potassium 3.9 Chloride 105 Carbon Dioxide 28.0 Anion Gap 5 BUN 15 Creatinine 0.58 Estim Creat Clear Calc 83.19 Est GFR (MDRD) Af Amer 136 Est GFR (MDRD) Non-Af 112 BUN/Creatinine Ratio 26.0 H Glucose 106 Calcium 7.9 L Troponin I < 0.015 Clinical Impression(s) from Imaging Studies Chest X-Ray 09/24/18 11:20 IMPRESSION: Since prior study, there has been progressive infiltrate in the left lower lobe superimposed on chronic interstitial scarring and emphysematous changes worse in the right upper lobe. 1.4 cm x 1.4 cm nodular density presumably in the left lower lobe. Electronically Signed: Thee Vu MD at 12:26 EST , Service support , Assessment/Plan All Active Problems Healthcare-associated pneumonia (Acute) This is a 62 years old female patient presented to the emergency room because of worsening shortness of breath and productive cough in context of recent history of hospital admission for influenza A and probable COPD exacerbation, found to have new infiltrate on the left lower base consistent with healthcare associated versus post viral pneumonia and she is being admitted for treatment. #1 left lower lobe healthcare versus post viral pneumonia: Chest x-ray reviewed. She does have chronic edematous changes in both lungs, new infiltrate on the left base. Her vital signs are stable, afebrile. She does have leukocytosis. No evidence of sepsis or severe sepsis. Plan: Admit to [facility] floor, telemetry, IV fluids, blood culture, sputum culture, urinalysis, urine culture, respiratory panel for viruses, repeat CBC and BMP tomorrow morning, start IV vancomycin and Zosyn for pneumonia, bronchodilators, chest physiotherapy, incentive spirometer, pulmonology consult, PT OT evaluation and treatment. #2 probable left lung nodule: Chest x-ray revealed 1.4 x 1.4 cm nodular density in the left lower lung. Patient is a big time smoker. Plan for pulmonology consult as above. #3 COPD: At this time, pulse ox is maintained on 2 L of oxygen. Plan: DuoNeb every 6 hours, albuterol as needed, antitussives. #4 DVT prophylaxis: Subcu Lovenox. This note was generated with [employer] dictation software. It may contain incorrect words, spelling, and punctuation that were not noted in checking the note before signing. Code Visit Inpatient E&M: 50648 Init Hosp L2
--- NOTE | 2018-09-24 14:20 | HP.PCM_ITS ---
Problem List (1) Scoliosis Status: Chronic (2) COPD (chronic obstructive pulmonary disease) Status: Chronic (3) Healthcare-associated pneumonia Status: Acute History of Present Illness Date of Admission: 09/24/18 Chief Complaint: Worsening shortness of breath. The patient is a 62 year old F with past medical history as mentioned above presented to the emergency room because of worsening shortness of breath. Patient was discharged from the hospital 4 days ago after admission for influenza A and probable COPD exacerbation. She states that since she was discharged, her breathing did not improve significantly, got worse over the last couple of days, it is mainly up on moderate exertion, progressed to become even at minimal exertion, associated with productive cough with green sputum and without relieving or aggravating factors. She denies fever or chills. She reported chest discomfort upon coughing. In the emergency department, she was afebrile, blood pressure and heart rate were stable, pulse ox was 92% on 2 L. Her routine blood work was remarkable for leukocytosis but patient has been on steroids, otherwise normal. One was negative. EKG revealed normal sinus rhythm without evidence of acute ischemic changes or cardiac arrhythmias. Chest x-ray revealed infiltrate on the left lower lobe with chronic edematous changes on both sides, 1.4 x 1.4 no acute in the left lower lobe. She is being admitted for healthcare associated pneumonia/post viral pneumonia. Past Medical History Past Medical History (Chronic Problems): Chronic Problems Scoliosis (Chronic) COPD (chronic obstructive pulmonary disease) (Chronic) Allergies azithromycin Allergy (Verified 09/24/18 10:47) Hives cimetidine [From Tagamet] Allergy (Verified 09/24/18 10:47) Hives cimetidine HCl [From Tagamet] Allergy (Verified 09/24/18 10:47) Hives nitrofurantoin [From Macrodantin] Allergy (Verified 09/24/18 14:04) Hives MICRODANTIN Allergy (Uncoded 09/24/18 10:47) Hives Home Medications: Ambulatory Orders Medication Instructions Recorded Albuterol IH (ProAir) [Proair Hfa] 1 - 2 puff INHALATION Q4H PRN PRN 09/19/18 #1 inhaler Acetaminophen [Tylenol Extra 1,000 mg PO Q4H PRN PRN 09/24/18 Strength] Surgical History: - - Spine surgery for scoliosis, pleurodesis for blebs and spontaneous pneumothorax Psychiatric History: No pertinent psych hx [employer] History: No pertinent [employer] history Lives: With Family Smoking Status: Current every day smoker Tobacco Use: Cigarettes Alcohol: None Drugs: None - *Family History Maternal History Items: Cancer, Heart Disease Paternal History Items: Heart Disease Review of Systems Constitutional: Reports: Weakness. Denies: Anorexia, Chills, Fever Eyes: Denies: Blurred vision, Double vision, Drainage, Redness HEENT: Denies: Difficulty Hearing, Ear Pain, Eye Pain, Nasal Congestion, Sore Throat Cardiovascular: Denies: Chest Pain, Chest Pressure, Heaviness, Light Headedness, Palpitations, Syncope Respiratory: Reports: Cough, Shortness of Breath, Shortness of breath upon exertion, Sputum production. Denies: Hemoptysis, Pleuritic Pain, Wheezing Gastrointestinal: Denies: Abdominal Pain, Constipation, Diarrhea, Nausea, Vomiting Genitourinary: Denies: Dysuria, Frequency, Hematuria Musculoskeletal: Denies: Arm Pain, Back Pain Skin: Denies: Dryness, Rash Neurological: Denies: Balance problems, Double vision, Change in Speech, Slurred speech, Confusion, Headaches, Incoordination Psychiatric: Denies: Anxiety, Depression VTE Information - Inpt Only VTE Present on Admission: No VTE Mechan Device Prophylaxis: None VTE Pharm Prophylaxis ordered?: Yes Patient Problems: Active and Suspected Problems Healthcare-associated pneumonia (Acute) - Physical Exam General: Alert, Oriented x3, Cooperative, No apparent distress HEENT: Atraumatic, PERRLA, EOMI, Normocephalic Oral: Moist Mucosa, No Gingival or Mucosal Lesions/ Ulcerations Neck: Supple, No JVD, Negative Carotid Bruits, Trachea Midline, Thyroid Normal Size and Texture Lungs: No wheeze, Diminished, Rales, Rhonchi, Short of Breath, - - Decreased breath sounds bilateral, coarse crackles in the left base, occasional rhonchi. Cardiovascular: Regular rate, Regular Rhythm, Normal S1, Normal S2, PMI Normal Abdomen: Bowel Sounds Present, Soft, Non Tender, Non-Distended, No Hepato- splenomegaly, Obese Extremities: No clubbing, No cyanosis, No edema Skin: No rashes, No breakdown Lymphatic: No Cervical, Supraclavicular, or Inguinal Adenopathy Neurological: Cranial nerves II-XII grossly intact, Motor Exam 5/5 strength throughout Psych/Mental Status: Normal Affect, Appropriate, Alert and oriented to time, place, person, mood and affect Vital Signs Temp Pulse Resp BP Pulse Ox 98.1 F 79 20 H 153/96 H 92 09/24/18 14:14 09/24/18 14:14 09/24/18 14:14 09/24/18 14:14 09/24/18 14:14 Oxygen Flow Rate (L/min) 2 Oxygen Delivery Method Room Air Weight: 128 lb 11.999 oz Body Mass Index (BMI) 22.8 Laboratory Tests Past 24 Hrs 09/24/18 09/24/18 11:00 11:00 WBC 16.3 H RBC 4.85 Hgb 14.9 Hct 44.7 MCV 92.2 MCH 30.7 MCHC 33.3 RDW 13.7 RDW Differential 46.0 H Plt Count 403 MPV 9.0 Immature Gran % (Auto) 0.700 Neut % (Auto) 80.7 H Lymph % (Auto) 10.0 L [place] % (Auto) 8.4 Eos % (Auto) 0.0 Baso % (Auto) 0.2 Absolute Neuts (auto) 13.2 H Absolute Lymphs (auto) 1.62 Total Counted Not Reportable Sodium 138 Potassium 3.9 Chloride 105 Carbon Dioxide 28.0 Anion Gap 5 BUN 15 Creatinine 0.58 Estim Creat Clear Calc 83.19 Est GFR (MDRD) Af Amer 136 Est GFR (MDRD) Non-Af 112 BUN/Creatinine Ratio 26.0 H Glucose 106 Calcium 7.9 L Troponin I < 0.015 Clinical Impression(s) from Imaging Studies Chest X-Ray 09/24/18 11:20 IMPRESSION: Since prior study, there has been progressive infiltrate in the left lower lobe superimposed on chronic interstitial scarring and emphysematous changes worse in the right upper lobe. 1.4 cm x 1.4 cm nodular density presumably in the left lower lobe. Electronically Signed: Thee Vu MD at 12:26 EST , Service support , Assessment/Plan All Active Problems Healthcare-associated pneumonia (Acute) This is a 62 years old female patient presented to the emergency room because of worsening shortness of breath and productive cough in context of recent history of hospital admission for influenza A and probable COPD exacerbation, found to have new infiltrate on the left lower base consistent with healthcare associated versus post viral pneumonia and she is being admitted for treatment. #1 left lower lobe healthcare versus post viral pneumonia: Chest x-ray reviewed. She does have chronic edematous changes in both lungs, new infiltrate on the left base. Her vital signs are stable, afebrile. She does have leukocytosis. No evidence of sepsis or severe sepsis. Plan: Admit to [facility] floor, telemetry, IV fluids, blood culture, sputum culture, urinalysis, urine culture, respiratory panel for viruses, repeat CBC and BMP tomorrow morning, start IV vancomycin and Zosyn for pneumonia, bronchodilators, chest physiotherapy, incentive spirometer, pulmonology consult, PT OT evaluation and treatment. #2 probable left lung nodule: Chest x-ray revealed 1.4 x 1.4 cm nodular density in the left lower lung. Patient is a big time smoker. Plan for pulmonology consult as above. #3 COPD: At this time, pulse ox is maintained on 2 L of oxygen. Plan: DuoNeb e very 6 hours, albuterol as needed, antitussives. #4 DVT prophylaxis: Subcu Lovenox. This note was generated with [email or web address] dictation software. It may contain incorrect words, spelling, and punctuation that were not noted in checking the note before signing. Code Visit Inpatient E&M: 74195 Init Hosp L2
[2018-09-24] MEDS: Vancomycin IV 1,000 MG/200 ML BAG 200 MG IV (16:08)
[2018-09-24] MEDS: 0.9% Normal Saline 1,000 ML 75 ML IV (16:14)
[2018-09-24 16:15] LABS: BNP,B-Type NATRIURETIC PEPTIDE 110.9 pg/mL (0-100)
--- NOTE | 2018-09-24 16:25 | PCM.RX.CS ---
Consult Pharmacy has been consulted to manage selected antiobiotic: Vancomycin Type of Consult: New start Suspected Infection: Pneumonia Prior Doses of Antibiotics Received/Current Regimen: Patient received 1gm iv 09.24.18. Labs: Sodium 138 mmol/L (136-145) 09/24/18 11:00 Potassium 3.9 mmol/L (3.5-5.1) 09/24/18 11:00 Chloride 105 mmol/L (98-107) 09/24/18 11:00 Carbon Dioxide 28.0 mmol/L (21.0-32.0) 09/24/18 11:00 Anion Gap 5 (5-15) 09/24/18 11:00 BUN 15 mg/dL (7-18) 09/24/18 11:00 Creatinine 0.58 mg/dL (0.55-1.02) 09/24/18 11:00 Est GFR (MDRD) Af Amer 136 mL/min (>60) 09/24/18 11:00 Est GFR (MDRD) Non-Af 112 mL/min (>60) 09/24/18 11:00 BUN/Creatinine Ratio 26.0 RATIO (10-20) H 09/24/18 11:00 Glucose 106 mg/dL (74-106) 09/24/18 11:00 Weight used for dosin.6 kg Estimated Creatinine Clearance: 83.2ml/min Goal Trough: 15-20 mcg/mL Pharmacy Plan for Drug Dosing: Will begin 1gm iv q12h. vancomycin trough ordered for before 4th dose on 09.26.18 @0330 with goal range of 15-20 mcg/ml. Pharmacy Service will continue to monitor and adjust dosing as required. Follow-Up Labs: Trough Vancomycin - . @0330 before 0400 dose
[2018-09-24 17:42] LABS: Color, Urine Yellow (Yellow); Glucose, Dipstick Normal (Normal); Ketone-Dipstick Negative (Negative); Leukocyte Esterase-Dipstick Negative /ul (Negative); Nitrite-Dipstick Negative (Negative); Occult Blood-Urine Negative /ul (Negative); Protein-Dipstick Negative (Negative); Specific Gravity, Urine 1.015 (1.002-1.030); Urine Bilirubin Dipstick Negative (Negative); Urine Clarity Clear (Clear); Urine Urobilinogen 1 mg/dl (Normal)
[2018-09-24 18:04] LABS: M R Staph aureus DNA By PCR Negative (Negative); Probe Check PASS; Specimen Processing Control PASS
[2018-09-25] VITALS (13 sets, daily range): BP systolic 124–155; BP diastolic 66–85; PULSE 67–104; RESP 18–20; TEMP 36.8–37.1; O2SAT 90–93
[2018-09-25] MEDS: Acetaminophen 325 MG Tablet 650 MG PO (01:18)
[2018-09-25] MEDS: Ipratropium/Albuterol Sulfate 3 ML AMPUL.NEB INHALATION ×4 (03:39→19:15)
[2018-09-25] MEDS: Vancomycin IV 1,000 MG/200 ML BAG 200 MG IV (03:53)
[2018-09-25 06:25] LABS: Absolute Lymphocyte Count 2.78 X10^3/ul (0.83-4.51); Absolute Neutrophil Count 6.3 X10^3/uL (2.0-7.7); Basophil# 0.02 X10^3/uL; Basophil% 0.2 % (0-1); Eosinophil# 0.04 X10^3/uL; Eosinophils% 0.4 % (0-5); Hematocrit 40.3 % (37-47); Hemoglobin 13.3 g/dl (12.0-15.0); Lymphocyte # 2.78 X10^3/ul (4.0); Lymphocyte % 25.8 % (19-41); Mean Corpuscular Hgb 30.9 pg (27.0-32.0); Mean Corpuscular Volume 93.5 fL (81-99); Mean Platelet Vol. 8.9 fl (6.2-12.0); Monocyte# 1.55 X10^3/uL; Monocyte% 14.4 % (0-10); Neutrophil # 6.31 X10^3/uL (2.7-7.7); Neutrophil % 58.6 % (47-70); Platelet Count 364 K/mm3 (150-450); Red Blood Count 4.31 M/mm3 (4.2-5.4); White Blood Count 10.8 K/mm3 (4.4-11.0)
[2018-09-25 06:27] LABS: Differential Indicated SCAN CRITERIA MET; POSITIVE COUNT NO; POSITIVE DIFFERENTIAL YES; POSITIVE MORPHOLOGY YES
[2018-09-25 06:41] LABS: Anion Gap 10 (5-15); BUN 13 mg/dL (7-18); Chloride 109 mmol/L (98-107); Creatinine, Serum 0.76 mg/dL (0.55-1.02); EST Glomerular Filtration Rate 81 mL/min (>60); Est Glom Filt Rate - Afr Amer 99 mL/min (>60); Estimated Creatinine Clearance 63.49 ml/min; Glucose 114 mg/dL (74-106); Potassium 3.3 mmol/L (3.5-5.1); Sodium Level 143 mmol/L (136-145)
--- NOTE | 2018-09-25 06:41 | PCM.PROGNOTE ---
Patient Problems: Active and Suspected Problems Healthcare-associated pneumonia (Acute) Subjective: Ms. Dueñas is a 62-year-old female with a history of COPD, nicotine addiction and scoliosis who presented to the emergency department at [facility] on 09/24/2018 complaining of worsening shortness of breath. She had been discharged from the hospital 4 days prior to presentation to the emergency room with a diagnosis of influenza A and COPD exacerbation. She was not on supplemental oxygen at discharge and she was discharged with a prednisone taper and albuterol inhaler. Vital signs of presentation to the emergency room were temperature 97.9, pulse rate 85, blood pressure 155/89, respiratory rate 15 and she was 90% on room air at rest. Pulse ox was 93% on a 2 L nasal cannula. White blood cell count was elevated at 16.3 with 81% neutrophils. Hemoglobin and platelets were within normal limits. BMP was unremarkable. Troponin was less than 0.015 and the BNP was 110.9. UA was negative for leukocyte esterase. MRSA nasal screen was negative. Chest x-ray showed progressive infiltrate in the left lower lobe since the previous study superimposed on chronic interstitial scarring and emphysematous changes, worse in the right upper lobe with bullous formation. There was a 1.4 x 1.4 nodular density presumably in the left lower lobe. She was admitted to the hospital on telemetry for workup for possible healthcare acquired pneumonia was initiated. Vancomycin and Zosyn were ordered. Pulmonary consult was ordered to evaluate the nodule in the left lower lobe. Day #2 vancomycin and Zosyn All events of the past 24 hours been reviewed. Tmax 99.7. Vital signs are stable. Currently 93% on room air at rest. All lab was personally reviewed. White blood cell count today is 10.8 with an unremarkable differential. Potassium is low at 3.3. She is c/o left ear DC....prior to that had pain in the left ear. She also now has decreased hearing in the left ear. Continues to c/o [place]. Has not smoked since being admitted to the hospital for influenza A recently. Had stopped in the past for a period of 11 1/2 years but then her passed and she started smoking again and now has been smoking for 11 years again. Has not seen a promotion manager or had PFT's - Physical Exam General: Alert, Oriented x3, Cooperative, No apparent distress - at rest HEENT: Atraumatic, Normocephalic, - - the Left TM is perforated and there is DC in the canal....There is redness of the TM Oral: Moist Mucosa Neck: Supple, Negative Carotid Bruits, No Nuchal Rigidity, Trachea Midline Lungs: No rhonchi, No wheeze, Diminished, Rales - in the bases, - - No conversational dyspnea, no accessory muscle use, not tachypneic at rest Cardiovascular: Regular rate, Regular Rhythm, Normal S1, Normal S2, No murmurs, No Ectopic Activity, No rub noted, No Gallop Abdomen: Bowel Sounds Present, Soft, Non Tender, Distended - mildly distended and tympanic Extremities: No edema, Clubbing - fingernails and toenails. The distal toes are all erythematous, denies pain, Peripheral Pulses Normal Skin: No rashes, No breakdown Neurological: Cranial nerves II-XII grossly intact, Neuro grossly intact Psych/Mental Status: Normal Affect, Appropriate Vital Signs Temp Pulse Resp BP Pulse Ox 98.6 F 75 18 155/74 H 93 09/25/18 01:23 09/25/18 03:39 09/25/18 03:39 09/25/18 01:23 09/25/18 01:23 Oxygen Flow Rate (L/min) 2 Oxygen Delivery Method Room Air Weight: 124 lb 12.8 oz Body Mass Index (BMI) 22.1 Intake and Output for Last 24 Hours 09/23/18 09/24/18 09/25/18 23:59 23:59 23:59 Intake Total 1695 / 1695 962 / 962 Output Total 550 / 550 Balance 1145 / 1145 962 / 962 Microbiology Past 72 Hours 09/24/18 17:10 Streptococcus pneumoniae Antigen (M - Final Urine, Clean Catch 09/24/18 17:10 Legionella Antigen - Final Urine, Clean Catch Laboratory Tests Past 24 Hrs 09/24/18 09/24/18 09/24/18 11:00 11:00 15:12 WBC 16.3 H RBC 4.85 Hgb 14.9 Hct 44.7 MCV 92.2 MCH 30.7 MCHC 33.3 RDW 13.7 RDW Differential 46.0 H Plt Count 403 MPV 9.0 Immature Gran % (Auto) 0.700 Neut % (Auto) 80.7 H Lymph % (Auto) 10.0 L [place] % (Auto) 8.4 Eos % (Auto) 0.0 Baso % (Auto) 0.2 Absolute Neuts (auto) 13.2 H Absolute Lymphs (auto) 1.62 Total Counted Not Reportable Sodium 138 Potassium 3.9 Chloride 105 Carbon Dioxide 28.0 Anion Gap 5 BUN 15 Creatinine 0.58 Estim Creat Clear Calc 83.19 Est GFR (MDRD) Af Amer 136 Est GFR (MDRD) Non-Af 112 BUN/Creatinine Ratio 26.0 H Glucose 106 Calcium 7.9 L Troponin I < 0.015 B-Natriuretic Peptide 110.9 H Urine Color Urine Clarity Urine pH Ur Specific [place] Urine Protein Urine Glucose (UA) Urine Ketones Urine Occult Blood Urine Nitrite Urine Bilirubin Urine Urobilinogen Ur Leukocyte Esterase MRSA (PCR) 09/24/18 09/24/18 09/25/18 16:25 17:10 05:50 WBC 10.8 RBC 4.31 Hgb 13.3 Hct 40.3 MCV 93.5 MCH 30.9 MCHC 33.0 RDW 14.0 RDW Differential 46.0 H Plt Count 364 MPV 8.9 Immature Gran % (Auto) 0.600 Neut % (Auto) 58.6 Lymph % (Auto) 25.8 [place] % (Auto) 14.4 H Eos % (Auto) 0.4 Baso % (Auto) 0.2 Absolute Neuts (auto) 6.3 Absolute Lymphs (auto) 2.78 Total Counted Pending Sodium Potassium Chloride Carbon Dioxide Anion Gap BUN Creatinine Estim Creat Clear Calc Est GFR (MDRD) Af Amer Est GFR (MDRD) Non-Af BUN/Creatinine Ratio Glucose Calcium Troponin I B-Natriuretic Peptide Urine Color Yellow Urine Clarity Clear Urine pH 6.0 Ur Specific [place] 1.015 Urine Protein Negative Urine Glucose (UA) Normal Urine Ketones Negative Urine Occult Blood Negative Urine Nitrite Negative Urine Bilirubin Negative Urine Urobilinogen 1 H Ur Leukocyte Esterase Negative MRSA (PCR) Negative 09/25/18 05:50 WBC RBC Hgb Hct MCV MCH MCHC RDW RDW Differential Plt Count MPV Immature Gran % (Auto) Neut % (Auto) Lymph % (Auto) [place] % (Auto) Eos % (Auto) Baso % (Auto) Absolute Neuts (auto) Absolute Lymphs (auto) Total Counted Sodium Pending Potassium Pending Chloride Pending Carbon Dioxide Pending Anion Gap Pending BUN Pending Creatinine Pending Estim Creat Clear Calc Est GFR (MDRD) Af Amer Pending Est GFR (MDRD) Non-Af Pending BUN/Creatinine Ratio Pending Glucose Pending Calcium Pending Troponin I B-Natriuretic Peptide Urine Color Urine Clarity Urine pH Ur Specific [place] Urine Protein Urine Glucose (UA) Urine Ketones Urine Occult Blood Urine Nitrite Urine Bilirubin Urine Urobilinogen Ur Leukocyte Esterase MRSA (PCR) Medical Necessity - Tobacco Use Smoking Status: Current every day smoker Tobacco Use: Cigarettes Assessment/Plan All Active Problems Healthcare-associated pneumonia (Acute) Impressions 1. PNA -preliminary respiratory culture is positive for alpha hemolytic Streptococcus 2. Acute exacerbation of COPD secondary to pneumonia 3. Acute left otitis media with perforation of the tympanic membrane 4. Nicotine dependence 5. Emphysema with multiple blebs and some areas of bronchiectasis on CT scan of the chest 6. History of partial left upper lobe resection for bullous disease with episodes of spontaneous pneumothorax 7. Respiratory insufficiency with borderline hypoxemia at rest 8. Hypokalemia-supplements ordered Incentive spirometry Smoking cessation counselling Change the antibiotic to Rocephin for streptococcal PNA and L otitis media Pulmonary consult today. Intravenous steroids were not started at admission because the patient had no wheezing. She just recently finished a course of steroids with a taper. We will continue to withhold steroids and await Dr. Calloway's consult. Await the radiologist's report on the CT of the chest Start Effexor XR for control of anxiety and depression Smoking cessation was discussed with Sharona and she was advised that cigarette smoking is the leading preventable cause of mortality in the [place]. The 3 major causes of smoking-related mortality are atherosclerotic cardiovascular diseases, lung cancer and COPD. Up to 1/2 of all smokers can expect to of a smoking related illness. Smoking also increases the risk for Infections, Diabetes, Osteoporosis, Reproductive disorders, PUD, peridontal disease and postoperative complications. Nicotine is a potent psychoactive drug that causes physical dependence and tolerance. Nicotine withdrawal sx inluding increased appetite or weight gain, depressed mood, insomnia, irritability, frustration, anxiety, difficulty concentrating and restlessness were discussed. She was advised that the withdrawal symptoms generally peak in the first 3 days and subside over the next 3-4 weeks but cravings may continue for months to years. Both Behavioral and pharmacologic therapies were discussed with the patient and she was given an opportunity to ask questions. All questions were answered and she was made aware of the smoking cessation program at [facility]. A Nicotine patch was ordered and a prescription will provided at the time of discharge if she so desires. Will need to sign up for medicaid so that she can have OP PFT's and follow up with Dr. Calloway in the office. She may need oxygen at [place] and a ambulatory pulse ox on room air will be done prior to discharge. Discussed with the social services specialist whether or not we can provide medications for the next month, shy inhalers.....she is looking into it. Code Visit Inpatient E&M: 86575 Subs Hosp L3
--- NOTE | 2018-09-25 09:55 | PCM.CONS.GEN ---
Reason for Consult Date of Consultation: 09/25/18 Reason for Consultation: Pneumonia, history of chronic lung disease, lung surgery, questionable lung nodule History of Present Illness: The patient is a 62-year-old female, with a history as outlined below, who presented to the emergency department on September 24 with complaints of shortness of breath and productive cough. The patient was just discharged from the hospital after having been admitted September 17, during which time, she was treated for respiratory failure secondary to a COPD exacerbation which was due to influenza A infection. The patient was discharged home on Tamiflu and a prednisone taper. Unfortunately, the patient reports that she began to feel more short of breath shortly after her return home. She states that she does not utilize supplemental oxygen at her baseline. She is currently only utilizing albuterol at her baseline and states that she is unable to afford other medications due to a lack of insurance. She did undergo a lung volume reduction surgery approximately 18 years ago. She states that she previously smoked upwards of 1 pack of cigarettes per day and has been smoking for approximately 30 years. She did quit smoking for approximately 11 years at one point in time, only to relapse upon the passing of her . On presentation to the emergency department, the patient was noted to be afebrile and mildly hypertensive with a blood pressure of 155/89. She was initially documented to be saturating 90% on room air. Laboratory evaluation revealed elevated white blood cell count to 16,000. Chemistry profile was unremarkable. Troponin was negative. BNP was negative. Urinalysis was unremarkable. MRSA screen was negative. Plain film chest x-ray revealed chronic interstitial changes with a possible nodular density in the left lower lobe. The patient subsequently received aerosol treatments and antibiotics. She was admitted to the medical surgical floor under the presumption of healthcare associated pneumonia. Past Medical History Past Medical History (Chronic Problems): Chronic Problems Scoliosis (Chronic) COPD (chronic obstructive pulmonary disease) (Chronic) Allergies azithromycin Allergy (Verified 09/24/18 10:47) Hives cimetidine [From Tagamet] Allergy (Verified 09/24/18 10:47) Hives cimetidine HCl [From Tagamet] Allergy (Verified 09/24/18 10:47) Hives nitrofurantoin [From Macrodantin] Allergy (Verified 09/24/18 14:04) Hives MICRODANTIN Allergy (Uncoded 02/11/19 10:47) Hives Home Medications: Ambulatory Orders Medication Instructions Recorded Albuterol IH (ProAir) [Proair Hfa] 1 - 2 puff INHALATION Q4H PRN PRN 09/19/18 #1 inhaler Acetaminophen [Tylenol Extra 1,000 mg PO Q4H PRN PRN 09/24/18 Strength] Surgical History: - - Spine surgery for scoliosis, pleurodesis for blebs and spontaneous pneumothorax Psychiatric History: No pertinent psych hx CLINICAL MOLECULAR GENETICIST History: No pertinent CLINICAL MOLECULAR GENETICIST history Lives: With Family Smoking Status: Current every day smoker Tobacco Use: Cigarettes Alcohol: None Drugs: None - *Family History Maternal History Items: Cancer, Heart Disease Paternal History Items: Heart Disease Review of Systems Constitutional: Denies: Chills, Fever, Weight Change Eyes: Denies: Blurred vision, Double vision HEENT: Denies: Head Aches, Sinus Congestion, Sinus Drainage Cardiovascular: Denies: Chest Pain, Palpitations Respiratory: Reports: Cough, Shortness of Breath. Denies: Wheezing Gastrointestinal: Denies: Abdominal Pain, Nausea, Vomiting Genitourinary: Denies: Dysuria Musculoskeletal: Denies: Joint Pain, Joint Tenderness Skin: Denies: Rash, Wounds Neurological: Denies: Numbness, Tingling, Focal weakness Psychiatric: Denies: Anxiety, Depression, Homicidal Ideations, Suicidal Ideations Hematologic/ Lymphatic: Denies: Easy Bruising, Easy Bleeding Patient Problems: Active and Suspected Problems Healthcare-associated pneumonia (Acute) Objective: The patient's most recent lab work, culture data and imaging studies have all been personally reviewed. Strep and urine Legionella antigens were both negative. Sputum culture is currently pending. Blood culture is currently pending. Respiratory viral panel is also pending. - Physical Exam General: Alert, Cooperative, No apparent distress HEENT: Atraumatic, PERRLA, Normocephalic Oral: No Gingival or Mucosal Lesions/ Ulcerations Neck: Supple, No Nodes, Trachea Midline Lungs: No rhonchi, No wheeze, Diminished, - - Bibasilar rales (chronic per patient account) Cardiovascular: Regular rate, Regular Rhythm, Normal S1, Normal S2, No murmurs Abdomen: Bowel Sounds Present, Soft, Non Tender Extremities: No cyanosis, No edema, Clubbing Skin: No breakdown Musculoskeletal: No Tenderness to Palpation of Joints or Extremities Lymphatic: No Cervical, Supraclavicular, or Inguinal Adenopathy Neurological: Cranial nerves II-XII grossly intact, Neuro grossly intact Psych/Mental Status: Alert and oriented to time, place, person, mood and affect Vital Signs Temp Pulse Resp BP Pulse Ox 36.8 C 81 18 124/85 H 93 09/25/18 08:05 09/25/18 08:05 09/25/18 08:05 09/25/18 08:05 09/25/18 08:05 Oxygen Flow Rate (L/min) 2 Oxygen Delivery Method Room Air Weight: 124 lb 12.8 oz Body Mass Index (BMI) 22.1 Intake and Output for Last 24 Hours 09/23/18 09/24/18 09/25/18 23:59 23:59 23:59 Intake Total 1695 / 1695 962 / 962 Output Total 550 / 550 Balance 1145 / 1145 962 / 962 Microbiology Past 72 Hours 09/24/18 17:10 Streptococcus pneumoniae Antigen (M - Final Urine, Clean Catch 09/24/18 17:10 Legionella Antigen - Final Urine, Clean Catch Laboratory Tests Past 24 Hrs 09/24/18 09/24/18 09/24/18 11:00 11:00 15:12 WBC 16.3 H RBC 4.85 Hgb 14.9 Hct 44.7 MCV 92.2 MCH 30.7 MCHC 33.3 RDW 13.7 RDW Differential 46.0 H Plt Count 403 MPV 9.0 Immature Gran % (Auto) 0.700 Neut % (Auto) 80.7 H Lymph % (Auto) 10.0 L [place] % (Auto) 8.4 Eos % (Auto) 0.0 Baso % (Auto) 0.2 Absolute Neuts (auto) 13.2 H Absolute Lymphs (auto) 1.62 Total Counted Not Reportable Sodium 138 Potassium 3.9 Chloride 105 Carbon Dioxide 28.0 Anion Gap 5 BUN 15 Creatinine 0.58 Estim Creat Clear Calc 83.19 Est GFR (MDRD) Af Amer 136 Est GFR (MDRD) Non-Af 112 BUN/Creatinine Ratio 26.0 H Glucose 106 Calcium 7.9 L Troponin I < 0.015 B-Natriuretic Peptide 110.9 H Urine Color Urine Clarity Urine pH Ur Specific [place] Urine Protein Urine Glucose (UA) Urine Ketones Urine Occult Blood Urine Nitrite Urine Bilirubin Urine Urobilinogen Ur Leukocyte Esterase MRSA (PCR) 09/24/18 09/24/18 09/25/18 16:25 17:10 05:50 WBC 10.8 RBC 4.31 Hgb 13.3 Hct 40.3 MCV 93.5 MCH 30.9 MCHC 33.0 RDW 14.0 RDW Differential 46.0 H Plt Count 364 MPV 8.9 Immature Gran % (Auto) 0.600 Neut % (Auto) 58.6 Lymph % (Auto) 25.8 [place] % (Auto) 14.4 H Eos % (Auto) 0.4 Baso % (Auto) 0.2 Absolute Neuts (auto) 6.3 Absolute Lymphs (auto) 2.78 Total Counted Not Reportable Sodium Potassium Chloride Carbon Dioxide Anion Gap BUN Creatinine Estim Creat Clear Calc Est GFR (MDRD) Af Amer Est GFR (MDRD) Non-Af BUN/Creatinine Ratio Glucose Calcium Troponin I B-Natriuretic Peptide Urine Color Yellow Urine Clarity Clear Urine pH 6.0 Ur Specific [place] 1.015 Urine Protein Negative Urine Glucose (UA) Normal Urine Ketones Negative Urine Occult Blood Negative Urine Nitrite Negative Urine Bilirubin Negative Urine Urobilinogen 1 H Ur Leukocyte Esterase Negative MRSA (PCR) Negative 09/25/18 05:50 WBC RBC Hgb Hct MCV MCH MCHC RDW RDW Differential Plt Count MPV Immature Gran % (Auto) Neut % (Auto) Lymph % (Auto) [place] % (Auto) Eos % (Auto) Baso % (Auto) Absolute Neuts (auto) Absolute Lymphs (auto) Total Counted Sodium 143 Potassium 3.3 L Chloride 109 H Carbon Dioxide 24.0 Anion Gap 10 BUN 13 Creatinine 0.76 Estim Creat Clear Calc 63.49 Est GFR (MDRD) Af Amer 99 Est GFR (MDRD) Non-Af 81 BUN/Creatinine Ratio 17.0 Glucose 114 H Calcium 8.0 L Troponin I B-Natriuretic Peptide Urine Color Urine Clarity Urine pH Ur Specific [place] Urine Protein Urine Glucose (UA) Urine Ketones Urine Occult Blood Urine Nitrite Urine Bilirubin Urine Urobilinogen Ur Leukocyte Esterase MRSA (PCR) Clinical Impression(s) from Imaging Studies Chest X-Ray 09/24/18 11:20 IMPRESSION: Since prior study, there has been progressive infiltrate in the left lower lobe superimposed on chronic interstitial scarring and emphysematous changes worse in the right upper lobe. 1.4 cm x 1.4 cm nodular density presumably in the left lower lobe. Electronically Signed: Thee Vu MD at 12:26 EST , Service support , Assessment/Plan All Active Problems Healthcare-associated pneumonia (Acute) RECOMMENDATIONS: 1. Consider de-escalation of antibiotics to ceftriaxone. 2. Continue scheduled bronchodilators. 3. Given that the patient is on room air without evidence of wheezing on exam, will hold off on additional steroids. 4. Perform walking oximetry study to assess for exertional oxygen requirement. 5. Close outpatient pulmonary follow-up is recommended. IMPRESSIONS: 1. Worsening shortness of breath with concern for COPD with exacerbation secondary to healthcare associated pneumonia Although the patient was recently admitted to the hospital and treated for an influenza infection, her symptoms relapsed shortly after discharge. I did obtain a CT chest this morning which revealed significant bilateral emphysematous changes with bullae formation and scant areas of tree-in-bud opacities, which could represent an underlying pulmonary infectious process. Her current sputum culture is growing possible strep pneumo, with further studies to follow. I agree with continuing antibiotics. However, from my perspective vancomycin can be discontinued and her Zosyn can likely be de-escalated to ceftriaxone. I would plan to perform a walking oximetry study prior to consideration for discharge from the hospital. The patient may certainly have a new supplemental oxygen requirement. I do anticipate a prolonged recovery period for this patient, as I suspect she has rather advanced age COPD. I would certainly recommend that she follow-up in the pulmonary medicine clinic so that baseline pulmonary function studies can be obtained. In addition, the patient would likely benefit from being placed on a maintenance inhaler regimen. However, testing and medication coverage will be limited due to her lack of insurance. Recommend social work/case management assistance with this matter. I can also provide the patient with a limited supply of samples upon her discharge from the hospital. 2. Tobacco dependency, now reportedly in remission The patient does report that she has not smoked since her admission recently for influenza. Ongoing tobacco cessation is strongly encouraged. 3. Hypokalemia Electrolyte repletion as ordered. Recheck levels in the morning. This note was generated with [employer] software. It may contain incorrect words, spelling, and punctuation that were not noted in checking the note before signing. Code Visit Inpatient E&M: 98492 Init Hosp L3
--- NOTE | 2018-09-25 10:05 | CT_ITS ---
STUDY: CT CHEST WITH CONTRAST REASON FOR EXAM: Female, 62 years old. History of influenza. RADIATION DOSAGE (If Supplied By Facility): CTDIvol = ( 10.60 ) mGy, DLP = ( 297.37 ) mGycm TECHNIQUE: Transaxial imaging was performed following intravenous administration of 100 ml of Isovue 300 contrast material. Multiplanar coronal and sagittal images were reformatted. Individualized dose optimization techniques were used for this CT. COMPARISON: Comparison is made with prior chest radiograph dated September 24, 2018. FINDINGS: Hyperinflation. Marked bullous changes in the right upper lobe. Multiple subpleural blebs are seen in the left upper lobe. Focal healed descriptive alveolar densities in the anterior right upper lobe as well as in the left lower lobe superimposed on chronic scarring and bronchiectasis. Right middle lobe scarring and bronchiectasis. There is a 6.8 mm noncalcified nodule in the anterior aspect of the right middle lobe as seen on axial image #82. Calcified left pleural plaques. There is elevation of the left hemidiaphragm. Prior partial left upper lobectomy. There are calcifications of the coronary arteries. Normal mediastinum. Normal hilar regions. Normal enhanced pulmonary arteries. There is atherosclerotic calcification of the aortic arch with tortuosity and elongation of the aortic arch and descending thoracic aorta. There are multi-level degenerative changes of the thoracic spine. Dextroconvex scoliosis. Prior abdomen jose fixation. There is no demonstrated abnormality of the visualized upper abdomen. CT/Chest WITH Contrast IMPRESSION: Marked bullous changes in the right upper lobe with evidence of emphysema and chronic interstitial scarring and bronchiectasis. Multiple areas of focal reticular nodular changes with areas of confluence as described. 6.8 mm noncalcified nodule in the anterior aspect of the right middle lobe. Electronically Signed: Thee Vu MD at 14:42 EST , Service support ,
[2018-09-25] MEDS: Enoxaparin 40 MG/0.4 ML Syringe SC (11:51)
[2018-09-25] MEDS: guaiFENesin 1,200 MG Tablet 1200 MG PO ×2 (11:51→21:28)
--- NOTE | 2018-09-25 11:55 | CASEMGMT ---
ALEJANDRA SINHA Readmission Note Previous Admission: 09/17/18-09/19/18 DX: Influenza A Previous DC Plan: home Current Admission: 09/24/18 DX: Pneumonia Intro role of CM to patient and her daughter, Harmony in room. Pt states she was independent @ home. Uses walker only and has at home. Pt voiced concerns re: paying for any new prescriptions. ANNA Molina updated and will evaluate for prescription assist on dc. Pt lives in [facility], so [facility] is not option. PCP is Dr. Lee, but pt is set up to see SHANNON Phillips @ [facility]. ALEJANDRA SINHA encouraged her to follow up with TOOL GRINDER OPERATOR as [facility] also offers financial assistance. Daughter will assist with contacts. -Pt denies any other needs @ home. -DC PLAN: Home on discharge. Virginia BOSWELL RN ACM
--- NOTE | 2018-09-25 12:50 | CHAPLAIN ---
Type of Pastoral Visit _x__ Initial Visit ___ Follow-up Visit ___ On-call Visit ___ General Patient Visit ___ Spiritual Assessment ___ Family Conference ___ Bereavement ___ Rapid Response ___ Code Blue ___ Other (describe below) Pastoral Care Referral From _x__ Patient ___ Family ___ Nurse ___ Physician ___ Hydroelectric Station Chief ___ Tile Helper ___ Other (describe below) Sacrament/Intervention _x__ Active listening ___ Anointing ___ Faith ___ Bereavement ___ Communion ___ Radha exploration ___ ___ Life review _x__ Prayer ___ Reconciliation ___ Sacrament of Sick _x__ Supportive presence ___ Wedding ___ Other (describe below) Pastoral Comments
[2018-09-25] MEDS: Ceftriaxone 1 GM/50 ML BAG IV (14:29)
--- NOTE | 2018-09-25 14:31 | CASEMGMT ---
Social Work Note SW is familiar with pt as this worker saw pt last week in regards to self-pay. SW in to meet with pt. SW introduced self and role at [facility]. Pt states that she has the documents that this worker provided her last week and states that her daughter Harmony is currently working on completing Medicaid application and turning in appropriate documents for pt. SW explained that if she gets approved for Medicaid then it can be used for her recent hospitalizations. Pt states understanding, denied additional needs or concerns at this time. Emilie Wade PRINTING MECHANIST, RETAIL CLIENT MANAGER
[2018-09-26] VITALS (12 sets, daily range): BP systolic 124–143; BP diastolic 65–77; PULSE 78–99; RESP 14–20; TEMP 36.5–37.1; O2SAT 91–95
[2018-09-26] MEDS: Acetaminophen 325 MG Tablet 650 MG PO (01:53)
[2018-09-26] MEDS: Ipratropium/Albuterol Sulfate 3 ML AMPUL.NEB INHALATION ×3 (02:14→18:29)
[2018-09-26] MEDS: Mag Hydrox/Al Hydrox/Simeth 30 ML UDC PO (02:16)
[2018-09-26] MEDS: Pantoprazole Sodium 20 MG Tablet PO ×3 (02:22→21:41)
--- NOTE | 2018-09-26 07:12 | PN_ITS ---
Patient Problems: Active and Suspected Problems Healthcare-associated pneumonia (Acute) Subjective: The patient was seen and examined at the bedside this morning. Events from the last 24 hours have been reviewed. The patient is currently afebrile, hemodynamically stable and maintaining appropriate oxygen saturations on room air. The patient remains short of breath with exertion. Objective: The patient's most recent lab work, culture data and imaging studies have all been personally reviewed. CT scan revealed previous left upper lung volume reduction surgery along with significant bilateral emphysematous changes with marked blebs, non-confluent densities/scarring, right middle lobe bronchiectasis and 6.8 mm noncalcified nodule in the right middle lobe. Strep and urine Legionella antigens were both negative. Blood culture has shown no growth to date. Respiratory viral panel was negative. Sputum culture revealed 2+ alpha hemolytic Streptococcus, possible strep pneumo, with further studies to follow. - Physical Exam General: Alert, Cooperative, No apparent distress HEENT: Atraumatic, PERRLA, Normocephalic Oral: No Gingival or Mucosal Lesions/ Ulcerations Neck: Supple, No Nodes, Trachea Midline Lungs: No rhonchi, No wheeze, Diminished, Rales Cardiovascular: Regular rate, Regular Rhythm, Normal S1, Normal S2, No murmurs Abdomen: Bowel Sounds Present, Soft, Non Tender Extremities: No cyanosis, No edema, Clubbing Skin: - - No significant change from previous Musculoskeletal: No Tenderness to Palpation of Joints or Extremities Lymphatic: No Cervical, Supraclavicular, or Inguinal Adenopathy Neurological: Cranial nerves II-XII grossly intact, Neuro grossly intact Psych/Mental Status: Alert and oriented to time, place, person, mood and affect Vital Signs Temp Pulse Resp BP Pulse Ox 37.0 C 78 20 H 142/71 H 92 09/26/18 01:55 09/26/18 04:01 09/26/18 01:55 09/26/18 01:55 09/26/18 01:55 Oxygen Flow Rate (L/min) 2 Oxygen Delivery Method Room Air Weight: 124 lb 12.8 oz Body Mass Index (BMI) 22.1 Intake and Output for Last 24 Hours 09/24/18 09/25/18 09/26/18 23:59 23:59 23:59 Intake Total 1695 / 1695 962 / 962 400 / 400 Output Total 550 / 550 400 / 400 Balance 1145 / 1145 962 / 962 0 / 0 Microbiology Past 72 Hours 09/24/18 16:25 Gram Stain - Final Sputum, Expectorated/Coughed Respiratory Culture - Preliminary Alpha Hemolytic Streptococcus 09/24/18 15:00 Respiratory Panel (PCR) - Final Mucosa - Nasopharyngeal 09/24/18 17:10 Streptococcus pneumoniae Antigen (M - Final Urine, Clean Catch 09/24/18 17:10 Legionella Antigen - Final Urine, Clean Catch Labs (Last 48 Hours) 09/24/18 09/24/18 09/24/18 11:00 11:00 15:12 WBC 16.3 H RBC 4.85 Hgb 14.9 Hct 44.7 MCV 92.2 MCH 30.7 MCHC 33.3 RDW 13.7 RDW Differential 46.0 H Plt Count 403 MPV 9.0 Immature Gran % (Auto) 0.700 Neut % (Auto) 80.7 H Lymph % (Auto) 10.0 L [place] % (Auto) 8.4 Eos % (Auto) 0.0 Baso % (Auto) 0.2 Absolute Neuts (auto) 13.2 H Absolute Lymphs (auto) 1.62 Total Counted Not Reportable Sodium 138 Potassium 3.9 Chloride 105 Carbon Dioxide 28.0 Anion Gap 5 BUN 15 Creatinine 0.58 Estim Creat Clear Calc 83.19 Est GFR (MDRD) Af Amer 136 Est GFR (MDRD) Non-Af 112 BUN/Creatinine Ratio 26.0 H Glucose 106 Calcium 7.9 L Troponin I < 0.015 B-Natriuretic Peptide 110.9 H Urine Color Urine Clarity Urine pH Ur Specific [place] Urine Protein Urine Glucose (UA) Urine Ketones Urine Occult Blood Urine Nitrite Urine Bilirubin Urine Urobilinogen Ur Leukocyte Esterase MRSA (PCR) 09/24/18 09/24/18 09/25/18 16:25 17:10 05:50 WBC 10.8 RBC 4.31 Hgb 13.3 Hct 40.3 MCV 93.5 MCH 30.9 MCHC 33.0 RDW 14.0 RDW Differential 46.0 H Plt Count 364 MPV 8.9 Immature Gran % (Auto) 0.600 Neut % (Auto) 58.6 Lymph % (Auto) 25.8 [place] % (Auto) 14.4 H Eos % (Auto) 0.4 Baso % (Auto) 0.2 Absolute Neuts (auto) 6.3 Absolute Lymphs (auto) 2.78 Total Counted Not Reportable Sodium Potassium Chloride Carbon Dioxide Anion Gap BUN Creatinine Estim Creat Clear Calc Est GFR (MDRD) Af Amer Est GFR (MDRD) Non-Af BUN/Creatinine Ratio Glucose Calcium Troponin I B-Natriuretic Peptide Urine Color Yellow Urine Clarity Clear Urine pH 6.0 Ur Specific [place] 1.015 Urine Protein Negative Urine Glucose (UA) Normal Urine Ketones Negative Urine Occult Blood Negative Urine Nitrite Negative Urine Bilirubin Negative Urine Urobilinogen 1 H Ur Leukocyte Esterase Negative MRSA (PCR) Negative 09/25/18 05:50 WBC RBC Hgb Hct MCV MCH MCHC RDW RDW Differential Plt Count MPV Immature Gran % (Auto) Neut % (Auto) Lymph % (Auto) [place] % (Auto) Eos % (Auto) Baso % (Auto) Absolute Neuts (auto) Absolute Lymphs (auto) Total Counted Sodium 143 Potassium 3.3 L Chloride 109 H Carbon Dioxide 24.0 Anion Gap 10 BUN 13 Creatinine 0.76 Estim Creat Clear Calc 63.49 Est GFR (MDRD) Af Amer 99 Est GFR (MDRD) Non-Af 81 BUN/Creatinine Ratio 17.0 Glucose 114 H Calcium 8.0 L Troponin I B-Natriuretic Peptide Urine Color Urine Clarity Urine pH Ur Specific [place] Urine Protein Urine Glucose (UA) Urine Ketones Urine Occult Blood Urine Nitrite Urine Bilirubin Urine Urobilinogen Ur Leukocyte Esterase MRSA (PCR) Microbiology 09/24/18 16:25 Sputum, Expectorated/Coughed Gram Stain - Final 09/24/18 16:25 Sputum, Expectorated/Coughed Respiratory Culture - Preliminary Alpha Hemolytic Streptococcus 09/24/18 15:00 Mucosa - Nasopharyngeal Respiratory Panel (PCR) - Final 09/24/18 17:10 Urine, Clean Catch Streptococcus pneumoniae Antigen (M - Final 09/24/18 17:10 Urine, Clean Catch Legionella Antigen - Final Clinical Impression(s) from Imaging Studies Chest X-Ray 09/24/18 11:20 IMPRESSION: Since prior study, there has been progressive infiltrate in the left lower lobe superimposed on chronic interstitial scarring and emphysematous changes worse in the right upper lobe. 1.4 cm x 1.4 cm nodular density presumably in the left lower lobe. Electronically Signed: Thee Vu MD at 12:26 EST , Service support , Chest CT 09/25/18 10:05 IMPRESSION: Marked bullous changes in the right upper lobe with evidence of emphysema and chronic interstitial scarring and bronchiectasis. Multiple areas of focal reticular nodular changes with areas of confluence as described. 6.8 mm noncalcified nodule in the anterior aspect of the right middle lobe. Electronically Signed: Thee Vu MD at 14:42 EST , Service support , Medical Necessity - Tobacco Use Smoking Status: Current every day smoker Tobacco Use: Cigarettes Assessment/Plan All Active Problems Healthcare-associated pneumonia (Acute) RECOMMENDATIONS: 1. Continue antibiotics as ordered. 2. Continue scheduled bronchodilators. 3. Perform walking oximetry study to assess for exertional oxygen requirement. 4. Close outpatient pulmonary follow-up is recommended. 5. Repeat CT chest to follow-up on the patient's pulmonary nodule per updated 2017 Fleischner society recommendations. 6. I will provide the patient with samples of [place], prior to her discharge home. IMPRESSIONS: 1. Worsening shortness of breath with concern for COPD with exacerbation secondary to pneumococcal pneumonia Although the patient was recently admitted to the hospital and treated for an influenza infection, her symptoms relapsed shortly after discharge. CT chest revealed significant bilateral emphysematous changes with bullae formation and scant areas of tree-in-bud opacities, which could represent an underlying pulmonary infectious process. Her current sputum culture is growing possible strep pneumo. I would plan to continue antibiotics as ordered. I would plan to perform a walking oximetry study prior to consideration for discharge from the hospital. The patient may certainly have a new supplemental oxygen requirement. I do anticipate a prolonged recovery period for this patient, as I suspect she has rather advanced age COPD. I would certainly recommend that she follow-up in the pulmonary medicine clinic so that baseline pulmonary function studies can be obtained. In addition, the patient would likely benefit from being placed on a maintenance inhaler regimen. However, testing and medication coverage will be limited due to her lack of insurance. I can also provide the patient with a limited supply of samples upon her discharge from the hospital. 2. Tobacco dependency, now reportedly in remission The patient does report that she has not smoked since her admission recently for influenza. Ongoing tobacco cessation is strongly encouraged. This note was generated with [employer] dictation software. It may contain incorrect words, spelling, and punctuation that were not noted in checking the note before signing. Code Visit Inpatient E&M: 05579 Subs Hosp L2
[2018-09-26] MEDS: Enoxaparin 40 MG/0.4 ML Syringe SC (08:23)
[2018-09-26] MEDS: guaiFENesin 1,200 MG Tablet 1200 MG PO ×2 (08:23→21:41)
[2018-09-26] MEDS: Venlafaxine XR 37.5 MG Capsule PO (08:23)
[2018-09-26] MEDS: Ceftriaxone 1 GM/50 ML BAG IV (10:36)
--- NOTE | 2018-09-26 14:35 | NURSING ---
student nurse's charting reviewed for educational and learning purposes.
[2018-09-27] VITALS (13 sets, daily range): BP systolic 97–130; BP diastolic 46–73; PULSE 84–112; RESP 18–20; TEMP 36.7–37.2; O2SAT 89–97
[2018-09-27] MEDS: Ipratropium/Albuterol Sulfate 3 ML AMPUL.NEB INHALATION ×3 (00:38→12:43)
[2018-09-27] MEDS: Ceftriaxone 1 GM/50 ML BAG IV (09:01)
[2018-09-27] MEDS: guaiFENesin 1,200 MG Tablet 1200 MG PO (09:04)
[2018-09-27] MEDS: Enoxaparin 40 MG/0.4 ML Syringe SC (09:04)
[2018-09-27] MEDS: Pantoprazole Sodium 20 MG Tablet PO (09:05)
[2018-09-27] MEDS: Venlafaxine XR 37.5 MG Capsule PO (09:05)
[2018-09-27] MEDS: AMOXICILLIN 875 MG TABLET PO (11:14)
--- NOTE | 2018-09-27 12:16 | PCM.PROGNOTE ---
Patient Problems: Active and Suspected Problems Healthcare-associated pneumonia (Acute) Subjective: The patient was seen and examined at the bedside this morning. Events from the last 24 hours have been reviewed. The patient is currently afebrile, hemodynamically stable and maintaining appropriate oxygen saturations on room air. The patient reports that she got worn out yesterday going back and forth from the bathroom due to a self-limited diarrheal illness. She is currently maintaining appropriate oxygen saturations on room air. I provided the patient with samples of Anoro Ellipta this morning and instructed her on the use of the inhaler. She voiced understanding and had no questions. Objective: The patient's most recent lab work, culture data and imaging studies have all been personally reviewed. CT scan revealed previous left upper lung volume reduction surgery along with significant bilateral emphysematous changes with marked blebs, non-confluent densities/scarring, right middle lobe bronchiectasis and 6.8 mm noncalcified nodule in the right middle lobe. Strep and urine Legionella antigens were both negative. Blood culture has shown no growth to date. Respiratory viral panel was negative. Sputum culture revealed 2+ alpha hemolytic Streptococcus, possible strep pneumo, with further studies to follow. - Physical Exam General: Alert, Oriented x3, Cooperative, No apparent distress, - - Sitting in bedside recliner HEENT: Atraumatic, PERRLA, Normocephalic Oral: No Gingival or Mucosal Lesions/ Ulcerations Neck: Supple, No Nodes, Trachea Midline Lungs: No rhonchi, No wheeze, Diminished, Rales Cardiovascular: Regular rate, Regular Rhythm, Normal S1, Normal S2, No murmurs Abdomen: Bowel Sounds Present, Soft, Non Tender, Non-Distended Extremities: No cyanosis, No edema, Clubbing Skin: - - No significant change from previous. Musculoskeletal: No Tenderness to Palpation of Joints or Extremities Lymphatic: No Cervical, Supraclavicular, or Inguinal Adenopathy Neurological: Cranial nerves II-XII grossly intact, Neuro grossly intact Psych/Mental Status: Alert and oriented to time, place, person, mood and affect Vital Signs Temp Pulse Resp BP Pulse Ox 36.7 C 90 18 97/54 L 94 09/27/18 11:51 09/27/18 11:51 09/27/18 11:51 09/27/18 11:51 09/27/18 11:51 Oxygen Flow Rate (L/min) 2 Oxygen Delivery Method Room Air Weight: 124 lb 12.8 oz Body Mass Index (BMI) 22.1 Intake and Output for Last 24 Hours 09/25/18 09/26/18 09/27/18 23:59 23:59 23:59 Intake Total 962 / 962 900 / 900 1750 / 1750 Output Total 400 / 400 550 / 550 Balance 962 / 962 500 / 500 1200 / 1200 Microbiology Past 72 Hours 09/24/18 16:25 Gram Stain - Final Sputum, Expectorated/Coughed Respiratory Culture - Final Streptococcus pneumoniae 09/24/18 15:12 Blood Culture - Preliminary Blood Culture (Wb) - Anticubital Left No growth in 48 hours. 09/24/18 15:00 Respiratory Panel (PCR) - Final Mucosa - Nasopharyngeal 09/24/18 17:10 Streptococcus pneumoniae Antigen (M - Final Urine, Clean Catch 09/24/18 17:10 Legionella Antigen - Final Urine, Clean Catch Microbiology 09/24/18 16:25 Sputum, Expectorated/Coughed Gram Stain - Final 09/24/18 16:25 Sputum, Expectorated/Coughed Respiratory Culture - Final Streptococcus pneumoniae 09/24/18 15:12 Blood Culture (Wb) - Anticubital Left Blood Culture - Preliminary No growth in 48 hours. 09/24/18 15:00 Mucosa - Nasopharyngeal Respiratory Panel (PCR) - Final Clinical Impression(s) from Imaging Studies Chest X-Ray 09/24/18 11:20 IMPRESSION: Since prior study, there has been progressive infiltrate in the left lower lobe superimposed on chronic interstitial scarring and emphysematous changes worse in the right upper lobe. 1.4 cm x 1.4 cm nodular density presumably in the left lower lobe. Electronically Signed: Thee Vu MD at 12:26 EST , Service support , Chest CT 09/25/18 10:05 IMPRESSION: Marked bullous changes in the right upper lobe with evidence of emphysema and chronic interstitial scarring and bronchiectasis. Multiple areas of focal reticular nodular changes with areas of confluence as described. 6.8 mm noncalcified nodule in the anterior aspect of the right middle lobe. Electronically Signed: Thee Vu MD at 14:42 EST , Service support , Medical Necessity - Tobacco Use Smoking Status: Current every day smoker Tobacco Use: Cigarettes Assessment/Plan All Active Problems Healthcare-associated pneumonia (Acute) RECOMMENDATIONS: 1. Continue antibiotics as ordered. 2. Continue scheduled bronchodilators. 3. Perform walking oximetry study to assess for exertional oxygen requirement. 4. Close outpatient pulmonary follow-up is recommended. 5. Repeat CT chest to follow-up on the patient's pulmonary nodule per updated 2017 Fleischner society recommendations. 6. The patient was provided with samples of Anoro this morning and instructed on use. Recommend discharging the patient with an albuterol metered-dose inhaler as well. IMPRESSIONS: 1. COPD with exacerbation secondary to pneumococcal pneumonia Although the patient was recently admitted to the hospital and treated for an influenza infection, her symptoms relapsed shortly after discharge. CT chest revealed significant bilateral emphysematous changes with bullae formation and scant areas of tree-in-bud opacities, which could represent an underlying pulmonary infectious process. Her current sputum culture is growing strep pneumo. I would plan to continue antibiotics as ordered. I would plan to perform a walking oximetry study prior to consideration for discharge from the hospital. The patient may certainly have a new supplemental oxygen requirement. I do anticipate a prolonged recovery period for this patient, as I suspect she has rather advanced age COPD. I would certainly recommend that she follow-up in the pulmonary medicine clinic so that baseline pulmonary function studies can be obtained. In addition, the patient would likely benefit from being placed on a maintenance inhaler regimen. However, testing and medication coverage will be limited due to her lack of insurance. Anoro samples were provided to the patient this morning. I would also recommend that she be discharged home on an albuterol metered-dose inhaler to be utilized on a as needed basis. 2. Tobacco dependency, now reportedly in remission The patient does report that she has not smoked since her admission recently for influenza. Ongoing tobacco cessation is strongly encouraged. This note was generated with [employer] software. It may contain incorrect words, spelling, and punctuation that were not noted in checking the note before signing. Code Visit Inpatient E&M: 46140 Subs Hosp L2
--- NOTE | 2018-09-27 12:20 | PN_ITS ---
Patient Problems: Active and Suspected Problems Healthcare-associated pneumonia (Acute) Subjective: The patient was seen and examined at the bedside this morning. Events from the last 24 hours have been reviewed. The patient is currently afebrile, hemodynamically stable and maintaining appropriate oxygen saturations on room air. The patient reports that she got worn out yesterday going back and forth from the bathroom due to a self-limited diarrheal illness. She is currently maintaining appropriate oxygen saturations on room air. I provided the patient with samples of Anoro Ellipta this morning and instructed her on the use of the inhaler. She voiced understanding and had no questions. Objective: The patient's most recent lab work, culture data and imaging studies have all been personally reviewed. CT scan revealed previous left upper lung volume reduction surgery along with significant bilateral emphysematous changes with marked blebs, non-confluent densities/scarring, right middle lobe bronchiectasis and 6.8 mm noncalcified nodule in the right middle lobe. Strep and urine Legion amanuel antigens were both negative. Blood culture has shown no growth to date. Respiratory viral panel was negative. Sputum culture revealed 2+ alpha hemolytic Streptococcus, possible strep pneumo, with further studies to follow. - Physical Exam General: Alert, Oriented x3, Cooperative, No apparent distress, - - Sitting in bedside recliner HEENT: Atraumatic, PERRLA, Normocephalic Oral: No Gingival or Mucosal Lesions/ Ulcerations Neck: Supple, No Nodes, Trachea Midline Lungs: No rhonchi, No wheeze, Diminished, Rales Cardiovascular: Regular rate, Regular Rhythm, Normal S1, Normal S2, No murmurs Abdomen: Bowel Sounds Present, Soft, Non Tender, Non-Distended Extremities: No cyanosis, No edema, Clubbing Skin: - - No significant change from previous. Musculoskeletal: No Tenderness to Palpation of Joints or Extremities Lymphatic: No Cervical, Supraclavicular, or Inguinal Adenopathy Neurological: Cranial nerves II-XII grossly intact, Neuro grossly intact Psych/Mental Status: Alert and oriented to time, place, person, mood and affect Vital Signs Temp Pulse Resp BP Pulse Ox 36.7 C 90 18 97/54 L 94 09/27/18 11:51 09/27/18 11:51 09/27/18 11:51 09/27/18 11:51 09/27/18 11:51 Oxygen Flow Rate (L/min) 2 Oxygen Delivery Method Room Air Weight: 124 lb 12.8 oz Body Mass Index (BMI) 22.1 Intake and Output for Last 24 Hours 09/25/18 09/26/18 09/27/18 23:59 23:59 23:59 Intake Total 962 / 962 900 / 900 1750 / 1750 Output Total 400 / 400 550 / 550 Balance 962 / 962 500 / 500 1200 / 1200 Microbiology Past 72 Hours 09/24/18 16:25 Gram Stain - Final Sputum, Expectorated/Coughed Respiratory Culture - Final Streptococcus pneumoniae 09/24/18 15:12 Blood Culture - Preliminary Blood Culture (Wb) - Anticubital Left No growth in 48 hours. 09/24/18 15:00 Respiratory Panel (PCR) - Final Mucosa - Nasopharyngeal 09/24/18 17:10 Streptococcus pneumoniae Antigen (M - Final Urine, Clean Catch 09/24/18 17:10 Legionella Antigen - Final Urine, Clean Catch Microbiology 09/24/18 16:25 Sputum, Expectorated/Coughed Gram Stain - Final 09/24/18 16:25 Sputum, Expectorated/Coughed Respiratory Culture - Final Streptococcus pneumoniae 09/24/18 15:12 Blood Culture (Wb) - Anticubital Left Blood Culture - Preliminary No growth in 48 hours. 09/24/18 15:00 Mucosa - Nasopharyngeal Respiratory Panel (PCR) - Final Clinical Impression(s) from Imaging Studies Chest X-Ray 09/24/18 11:20 IMPRESSION: Since prior study, there has been progressive infiltrate in the left lower lobe superimposed on chronic interstitial scarring and emphysematous changes worse in the right upper lobe. 1.4 cm x 1.4 cm nodular density presumably in the left lower lobe. Electronically Signed: Thee Vu MD at 12:26 EST , Service support , Chest CT 09/25/18 10:05 IMPRESSION: Marked bullous changes in the right upper lobe with evidence of emphysema and chronic interstitial scarring and bronchiectasis. Multiple areas of focal reticular nodular changes with areas of confluence as described. 6.8 mm noncalcified nodule in the anterior aspect of the right middle lobe. Electronically Signed: Thee Vu MD at 14:42 EST , Service support , Medical Necessity - Tobacco Use Smoking Status: Current every day smoker Tobacco Use: Cigarettes Assessment/Plan All Active Problems Healthcare-associated pneumonia (Acute) RECOMMENDATIONS: 1. Continue antibiotics as ordered. 2. Continue scheduled bronchodilators. 3. Perform walking oximetry study to assess for exertional oxygen requirement. 4. Close outpatient pulmonary follow-up is recommended. 5. Repeat CT chest to follow-up on the patient's pulmonary nodule per updated 2017 Fleischner society recommendations. 6. The patient was provided with samples of Anoro this morning and instructed on use. Recommend discharging the patient with an albuterol metered-dose inhaler as well. IMPRESSIONS: 1. COPD with exacerbation secondary to pneumococcal pneumonia Although the patient was recently admitted to the hospital and treated for an influenza infection, her symptoms relapsed shortly after discharge. CT chest revealed significant bilateral emphysematous changes with bullae formation and scant areas of tree-in-bud opacities, which could represent an underlying pulmonary infectious process. Her current sputum culture is growing strep pneumo. I would plan to continue antibiotics as ordered. I would plan to perform a walking oximetry study prior to consideration for discharge from the hospital. The patient may certainly have a new supplemental oxygen requirement. I do anticipate a prolonged recovery period for this patient, as I suspect she has rather advanced age COPD. I would certainly recommend that she follow-up in the pulmonary medicine clinic so that baseline pulmonary function studies can be obtained. In addition, the patient would likely benefit from being placed on a maintenance inhaler regimen. However, testing and medication coverage will be limited due to her lack of insurance. Anoro samples were provided to the patient this morning. I would also recommend that she be discharged home on an albuterol metered-dose inhaler to be utilized on a as needed basis. 2. Tobacco dependency, now reportedly in remission The patient does report that she has not smoked since her admission recently for influenza. Ongoing tobacco cessation is strongly encouraged. This note was generated with [employer] software. It may contain incorrect words, spelling, and punctuation that were not noted in checking the note before signing. Code Visit Inpatient E&M: 66921 [facility] Hosp L2
--- NOTE | 2018-09-27 15:58 | PCM.DC ---
- Discharge Diagnoses Current Active Problems: Current Active and Chronic Problems Acute exacerbation COPD (chronic obstructive pulmonary disease) (Chronic) Streptococcal PNA Hypokalemia Acute left otitis media Perforation of left tympanic membrane You will use the following diet at home:: No restrictions Your food should be the consistency of: Regular Your liquids should be the consistency of: Regular/Thin Discharge Activity: - - Avoid exposure to any strong smells such as bleach, cleaning products, strong colognes or perfumes, paint fumes and smoke of any kind. Avoid sudden exposure to cold air because this can cause bronchospasm. You may want to cover your mouth when you go outside in the winter. Avoid exposure to anyone who is sick with a cough or sore throat. Call your doctor if you observe: Fever of 101 or Higher, Shortness of breath, Dizziness, Fainting spells, Chest pain, Calf discomfort, - - Call your PCP if severe diarrhea ( > 5 stools a day), painful sores in the mouth, painful swallowing, rash or itching. Taking a probiotic such as Lactobacillus or Kefir can help with loose stools while taking antibiotics. Instructions: Tips for Quitting Smoking (Cardiovascular), Chronic Lung Disease: Tips for Quitting Smoking, Planning to Quit Smoking, Getting Support for Quitting Smoking, What is COPD?, Chronic Lung Disease: Preventing Lung Infections, Resources for Chronic Lung Disease Additional Instructions: You have Steptococcal Pneumonia and you are going home on an antibiotic called Amoxil. You will take this twice a day until gone. Use the Albuterol inhaler 1-2 puffs every 4 hours as needed for Shortness of breath or wheezing. Use the Anoro Ellipta inhaler every day as Dr. Calloway instructed you. I gave you a prescription for Effexor and you will take it once a day in the AM for anxiety and depression. If you are able to get Medicaid you should follow up with Dr. Calloway in the office to arrange for pulmonary function tests......I suspect you have fairly advance lung disease and you should be following with a english drawer. I have given you some literature to read about where to find help for smoking cessation. GOOD LUCK .... think the effexor will help you quit smoking Allergies/Adverse Reactions: Allergies azithromycin Allergy (Verified 09/24/18 10:47) Hives cimetidine [From Tagamet] Allergy (Verified 09/24/18 10:47) Hives cimetidine HCl [From Tagamet] Allergy (Verified 09/24/18 10:47) Hives nitrofurantoin [From Macrodantin] Allergy (Verified 09/24/18 14:04) Hives MICRODANTIN Allergy (Uncoded 09/24/18 10:47) Hives Medications to take at Discharge Acetaminophen [Tylenol] 1,000 mg PO Q4H PRN PRN 09/24/18 Albuterol IH (ProAir) [Proair Hfa] 1 - 2 puff INHALATION Q4H PRN PRN #1 inhaler 09/27/18 Amoxicillin 875 mg PO BID #12 tablet 09/27/18 Guaifenesin [Mucinex] 1,200 mg PO BID #20 tablet 09/27/18 Venlafaxine XR [Effexor Xr] 75 mg PO DAILY #30 capsule 09/27/18 The following prescriptions were given: Albuterol IH (ProAir) [Proair Hfa] 1 - 2 puff INHALATION Q4H PRN PRN #1 inhaler PRN Reason: Wheezing Venlafaxine XR [Effexor Xr] 75 mg PO DAILY #30 capsule Amoxicillin 875 mg PO BID #12 tablet Guaifenesin [Mucinex] 1,200 mg PO BID #20 tablet Primary Care Physician: Tez Lee MD [Primary Care Provider] - Please follow up with your Primary Care Physician in: 7-10 days Test Results: Test results from this visit will be discussed in further detail at your follow-up appointment, if applicable. Please Follow Up With: Wei Calloway DO When: when you are able to get some insurance Proposed Discharge Date: 09/27/18
--- NOTE | 2018-09-27 16:10 | PCM.DC.SUM ---
Discharge Date and Diagnosis - Problem List Patient Problems: Active and Suspected Problems Hypokalemia (Acute) Acute respiratory insufficiency (Acute) Perforated tympanic membrane (Acute) Otitis media (Acute) COPD with acute exacerbation (Acute) Streptococcal pneumonia (Acute) Date of Admission: 09/24/18 Date of Discharge: 09/27/18 - Primary Discharge Diagnosis Active and Suspected Problems Streptococcal pneumonia (Acute) Acute respiratory insufficiency (Acute) Perforated left tympanic membrane (Acute) Left Otitis media (Acute) Acute exacerbation of suspected COPD (Acute) Hypokalemia (Acute) LLL pulmonary nodule - Secondary Discharge Diagnosis Chronic Problems Tobacco dependence (Chronic) History of lung surgery (Chronic) - 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 1.4 cm x 1.4 cm nodular density presumably in the left lower lobe. Electronically Signed: Thee Vu MD at 12:26 EST , Service support , Chest CT 09/25/18 10:05 IMPRESSION: Marked bullous changes in the right upper lobe with evidence of emphysema and chronic interstitial scarring and bronchiectasis. Multiple areas of focal reticular nodular changes with areas of confluence as described. 6.8 mm noncalcified nodule in the anterior aspect of the right middle lobe. Electronically Signed: Thee Vu MD at 14:42 EST , Service support , Microbiology 09/24/18 16:25 Sputum, Expectorated/Coughed Gram Stain - Final 09/24/18 16:25 Sputum, Expectorated/Coughed Respiratory Culture - Final Streptococcus pneumoniae 09/24/18 15:12 Blood Culture (Wb) - Anticubital Left Blood Culture - Preliminary No growth in 48 hours. 09/24/18 15:00 Mucosa - Nasopharyngeal Respiratory Panel (PCR) - Final 09/24/18 17:10 Urine, Clean Catch Streptococcus pneumoniae Antigen (M - Final 09/24/18 17:10 Urine, Clean Catch Legionella Antigen - Final Dr. Wei Calloway-pulmonary medicine Operations: None Procedures: None Summary of Care Provided: Ms. Dueñas is a 62-year-old female with a history of COPD, nicotine addiction and scoliosis who presented to the emergency department at [facility] on 09/24/2018 complaining of worsening shortness of breath. She had been discharged from the hospital 4 days prior to presentation to the emergency room with a diagnosis of influenza A and COPD exacerbation. She was not on supplemental oxygen at discharge and she was discharged with a prednisone taper and albuterol inhaler. Vital signs at presentation to the emergency room were temperature 97.9, pulse rate 85, blood pressure 155/89, respiratory rate 15 and she was 90% on room air at rest. Pulse ox was 93% on a 2 L nasal cannula. White blood cell count was elevated at 16.3 with 81% neutrophils. Hemoglobin and platelets were within normal limits. BMP was unremarkable. Troponin was less than 0.015 and the BNP was 110.9. UA was negative for leukocyte esterase. MRSA nasal screen was negative. Chest x-ray showed progressive infiltrate in the left lower lobe since the previous study superimposed on chronic interstitial scarring and emphysematous changes, worse in the right upper lobe with bullous formation. There was a 1.4 x 1.4 nodular density presumably in the left lower lobe. She was admitted to the hospital on telemetry for workup for possible healthcare acquired pneumonia was initiated. Vancomycin and Zosyn were ordered. Intravenous steroids or prednisone were not started secondary to no wheezing. Pulmonary consult was ordered to evaluate the nodule in the left lower lobe. At my first visit with this patient she complained of discharge from her left ear and stated that she had ear pain prior to the discharge. The left tympanic membrane was perforated with purulent discharge. Sputum culture was positive for streptococcal pneumoniae. She was transitioned from vancomycin and Zosyn to ceftriaxone when the sputum culture results were available. Blood cultures had no growth. Respiratory panel was negative. She was seen in consultation by Dr. Wei Calloway and he recommended a Anoro Ellipta inhaler at [place] and he provided her with samples for the next 21 days. She was started on Effexor XR during her admission to help control her anxiety and hopefully assist her in stopping smoking. At the time of discharge she was given prescriptions for Effexor XR, albuterol metered-dose inhaler, Amoxil and Mucinex. These medications were obtained from the outpatient retail pharmacy at no cost to the patient. She was instructed to follow-up with her primary care physician, Dr. Lee, in 7-10 days. Her daughter is completing a Medicaid application for her in which she does obtain insurance she should follow-up with Dr. eWi Calloway in his office to arrange outpatient pulmonary function tests and follow-up of the left lower lobe pulmonary nodule. Ambulatory pulse ox on room air prior to discharge ranged from 91-93%. Pulse ox on room air at rest on the date of discharge was 97%. - Physical Exam General: Alert, Oriented x3, Cooperative, No apparent distress - at rest HEENT: Atraumatic, Normocephalic, - - the Left TM is perforated and there is DC in the canal....There is redness of the TM Oral: Moist Mucosa Neck: Supple, Negative Carotid Bruits, No Nuchal Rigidity, Trachea Midline Lungs: No rhonchi, No wheeze, Diminished, no rales, - - No conversational dyspnea, no accessory muscle use, not tachypneic at rest, better air exchange today Cardiovascular: Regular rate, Regular Rhythm, Normal S1, Normal S2, No murmurs, No Ectopic Activity, No rub noted, No Gallop Abdomen: Bowel Sounds Present, Soft, Non Tender, Distended - mildly distended and tympanic Extremities: No edema, Clubbing - fingernails and toenails. The distal toes are all erythematous, denies pain, Peripheral Pulses Normal Skin: No rashes, No breakdown Neurological: Cranial nerves II-XII grossly intact, Neuro grossly intact Psych/Mental Status: Normal Affect, Appropriate This note was generated with [employer] dictation software. It may contain incorrect words, spelling, and punctuation that were not noted in checking the note before signing. Patient Problems: Active and Suspected Problems Hypokalemia (Acute) Acute respiratory insufficiency (Acute) Perforated tympanic membrane (Acute) Otitis media (Acute) COPD with acute exacerbation (Acute) Streptococcal pneumonia (Acute) - Physical Exam Vital Signs Temp Pulse Resp BP Pulse Ox 98.3 F 88 18 110/52 L 93 09/27/18 14:27 09/27/18 14:27 09/27/18 14:27 09/27/18 14:27 09/27/18 14:27 Oxygen Flow Rate (L/min) 2 Oxygen Delivery Method Room Air Weight: 124 lb 12.8 oz Body Mass Index (BMI) 22.1 Intake and Output for Last 24 Hours 09/25/18 09/26/18 09/27/18 23:59 23:59 23:59 Intake Total 962 / 962 900 / 900 1750 / 1750 Output Total 400 / 400 550 / 550 Balance 962 / 962 500 / 500 1200 / 1200 Microbiology Past 72 Hours 09/24/18 16:25 Gram Stain - Final Sputum, Expectorated/Coughed Respiratory Culture - Final Streptococcus pneumoniae 09/24/18 15:12 Blood Culture - Preliminary Blood Culture (Wb) - Anticubital Left No growth in 48 hours. 09/24/18 15:00 Respiratory Panel (PCR) - Final Mucosa - Nasopharyngeal 09/24/18 17:10 Streptococcus pneumoniae Antigen (M - Final Urine, Clean Catch 09/24/18 17:10 Legionella Antigen - Final Urine, Clean Catch Discharge Activity: - - Avoid exposure to any strong smells such as bleach, cleaning products, strong colognes or perfumes, paint fumes and smoke of any kind. Avoid sudden exposure to cold air because this can cause bronchospasm. You may want to cover your mouth when you go outside in the winter. Avoid exposure to anyone who is sick with a cough or sore throat. Call your doctor if you observe: Fever of 101 or Higher, Shortness of breath, Dizziness, Fainting spells, Chest pain, Calf discomfort, - - Call your PCP if severe diarrhea ( > 5 stools a day), painful sores in the mouth, painful swallowing, rash or itching. Taking a probiotic such as Lactobacillus or Kefir can help with loose stools while taking antibiotics. Home Medications: Medications to take at Discharge Acetaminophen [Tylenol] 1,000 mg PO Q4H PRN PRN 09/24/18 Albuterol IH (ProAir) [Proair Hfa] 1 - 2 puff INHALATION Q4H PRN PRN #1 inhaler 09/27/18 Amoxicillin 875 mg PO BID #12 tablet 09/27/18 Guaifenesin [Mucinex] 1,200 mg PO BID #20 tablet 09/27/18 Venlafaxine XR [Effexor Xr] 75 mg PO DAILY #30 capsule 09/27/18 Following Prescrptions Were Given to Patient: Albuterol IH (ProAir) [Proair Hfa] 1 - 2 puff INHALATION Q4H PRN PRN #1 inhaler PRN Reason: Wheezing Venlafaxine XR [Effexor Xr] 75 mg PO DAILY #30 capsule Amoxicillin 875 mg PO BID #12 tablet Guaifenesin [Mucinex] 1,200 mg PO BID #20 tablet Primary Care Physician: Tez Lee MD [Primary Care Provider] - Please follow up with your Primary Care Physician in: 7-10 days Please Follow Up With: Wei Calloway, DO When: when you are able to get some insurance Patient Instructions: Tips for Quitting Smoking (Cardiovascular), What is COPD?, Chronic Lung Disease: Preventing Lung Infections, Resources for Chronic Lung Disease, Chronic Lung Disease: Tips for Quitting Smoking, Planning to Quit Smoking, Getting Support for Quitting Smoking Disposition: Home Minutes spent on discharge:: 35 Patient Condition:: Stable - Improved Medical Necessity - Tobacco Use Smoking Status: Current every day smoker Tobacco Use: Cigarettes Meaningful Use Info Meaningful Use Diagnoses (Choose all that apply): None applicable Code Visit Inpatient E&M: 28883 Disch Hosp
--- NOTE | 2018-09-27 16:13 | DS.PCM_ITS ---
Discharge Date and Diagnosis - Problem List Patient Problems: Active and Suspected Problems Hypokalemia (Acute) Acute respiratory insufficiency (Acute) Perforated tympanic membrane (Acute) Otitis media (Acute) COPD with acute exacerbation (Acute) Streptococcal pneumonia (Acute) Date of Admission: 09/24/18 Date of Discharge: 09/27/18 - Primary Discharge Diagnosis Active and Suspected Problems Streptococcal pneumonia (Acute) Acute respiratory insufficiency (Acute) Perforated left tympanic membrane (Acute) Left Otitis media (Acute) Acute exacerbation of suspected COPD (Acute) Hypokalemia (Acute) LLL pulmonary nodule - Secondary Discharge Diagnosis Chronic Problems Tobacco dependence (Chronic) History of lung surgery (Chronic) - 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 1.4 cm x 1.4 cm nodular density presumably in the left lower lobe. Electronically Signed: Thee Vu MD at 12:26 EST , Service support , Chest CT 09/25/18 10:05 IMPRESSION: Marked bullous changes in the right upper lobe with evidence of emphysema and chronic interstitial scarring and bronchiectasis. Multiple areas of focal reticular nodular changes with areas of confluence as described. 6.8 mm noncalcified nodule in the anterior aspect of the right middle lobe. Electronically Signed: Thee Vu MD at 14:42 EST , Service support , Microbiology 09/24/18 16:25 Sputum, Expectorated/Coughed Gram Stain - Final 09/24/18 16:25 Sputum, Expectorated/Coughed Respiratory Culture - Final Streptococcus pneumoniae 09/24/18 15:12 Blood Culture (Wb) - Anticubital Left Blood Culture - Preliminary No growth in 48 hours. 09/24/18 15:00 Mucosa - Nasopharyngeal Respiratory Panel (PCR) - Final 09/24/18 17:10 Urine, Clean Catch Streptococcus pneumoniae Antigen (M - Final 09/24/18 17:10 Urine, Clean Catch Legionella Antigen - Final Dr. Wei Calloway-pulmonary medicine Operations: None Procedures: None Summary of Care Provided: Ms. Dueñas is a 62-year-old female with a history of COPD, nicotine addiction and scoliosis who presented to the emergency department at [facility] on 09/24/2018 complaining of worsening shortness of breath. She had been discharged from the hospital 4 days prior to presentation to the emergency room with a diagnosis of influenza A and COPD exacerbation. She was not on supplemental oxygen at discharge and she was discharged with a prednisone taper and albuterol inhaler. Vital signs at presentation to the emergency room were temperature 97.9, pulse rate 85, blood pressure 155/89, respiratory rate 15 and she was 90% on room air at rest. Pulse ox was 93% on a 2 L nasal cannula. White blood cell count was elevated at 16.3 with 81% neutrophils. Hemoglobin and platelets were within normal limits. BMP was unremarkable. Troponin was less than 0.015 and the BNP was 110.9. UA was negative for leukocyte esterase. MRSA nasal screen was negative. Chest x-ray showed progressive infiltrate in the left lower lobe since the previous study superimposed on chronic interstitial scarring and emphysematous changes, worse in the right upper lobe with bullous formation. There was a 1.4 x 1.4 nodular density presumably in the left lower lobe. She was admitted to the hospital on telemetry for workup for possible healthcare acquired pneumonia was initiated. Vancomycin and Zosyn were ordered. Intravenous steroids or prednisone were not started secondary to no wheezing. Pulmonary consult was ordered to evaluate the nodule in the left lower lobe. At my first visit with this patient she complained of discharge from her left ear and stated that she had ear pain prior to the discharge. The left tympanic membrane was perforated with purulent discharge. Sputum culture was positive for streptococcal pneumoniae. She was transitioned from vancomycin and Zosyn to ceftriaxone when the sputum culture results were available. Blood cultures had no growth. Respiratory panel was negative. She was seen in consultation by Dr. Wei Calloway and he recommended a Anoro Ellipta inhaler at [place] and he provided her with samples for the next 21 days. She was started on Effexor XR during her admission to help control her anxiety and hopefully assist her in stopping smoking. At the time of discharge she was given prescriptions for Effexor XR, albuterol metered-dose inhaler, Amoxil and Mucinex. These medications were obtained from the outpatient retail pharmacy at no cost to the patient. She was instructed to follow-up with her primary care physician, Dr. Lee, in 7-10 days. Her daughter is completing a Medicaid application for her in which she does obtain insurance she should follow-up with Dr. Wei Calloway in his office to arrange outpatient pulmonary function tests and follow-up of the left lower lobe pulmonary nodule. Ambulatory pulse ox on room air prior to discharge ranged from 91-93%. Pulse ox on room air at rest on the date of discharge was 97%. - Physical Exam General: Alert, Oriented x3, Cooperative, No apparent distress - at rest HEENT: Atraumatic, Normocephalic, - - the Left TM is perforated and there is DC in the canal....There is redness of the TM Oral: Moist Mucosa Neck: Supple, Negative Carotid Bruits, No Nuchal Rigidity, Trachea Midline Lungs: No rhonchi, No wheeze, Diminished, no rales, - - No conversational dyspnea, no accessory muscle use, not tachypneic at rest, better air exchange today Cardiovascular: Regular rate, Regular Rhythm, Normal S1, Normal S2, No murmurs, No Ectopic Activity, No rub noted, No Gallop Abdomen: Bowel Sounds Present, Soft, Non Tender, Distended - mildly distended and tympanic Extremities: No edema, Clubbing - fingernails and toenails. The distal toes are all erythematous, denies pain, Peripheral Pulses Normal Skin: No rashes, No breakdown Neurological: Cranial nerves II-XII grossly intact, Neuro grossly intact Psych/Mental Status: Normal Affect, Appropriate This note was generated with [employer] dictation software. It may contain incorrect words, spelling, and punctuation that were not noted in checking the note before signing. Patient Problems: Active and Suspected Problems Hypokalemia (Acute) Acute respiratory insufficiency (Acute) Perforated tympanic membrane (Acute) Otitis media (Acute) COPD with acute exacerbation (Acute) Streptococcal pneumonia (Acute) - Physical Exam Vital Signs Temp Pulse Resp BP Pulse Ox 98.3 F 88 18 110/52 L 93 09/27/18 14:27 09/27/18 14:27 09/27/18 14:27 09/27/18 14:27 09/27/18 14:27 Oxygen Flow Rate (L/min) 2 Oxygen Delivery Method Room Air Weight: 124 lb 12.8 oz Body Mass Index (BMI) 22.1 Intake and Output for Last 24 Hours 09/25/18 09/26/18 09/27/18 23:59 23:59 23:59 Intake Total 962 / 962 900 / 900 1750 / 1750 Output Total 400 / 400 550 / 550 Balance 962 / 962 500 / 500 1200 / 1200 Microbiology Past 72 Hours 09/24/18 16:25 Gram Stain - Final Sputum, Expectorated/Coughed Respiratory Culture - Final Streptococcus pneumoniae 09/24/18 15:12 Blood Culture - Preliminary Blood Culture (Wb) - Anticubital Left No growth in 48 hours. 09/24/18 15:00 Respiratory Panel (PCR) - Final Mucosa - Nasopharyngeal 09/24/18 17:10 Streptococcus pneumoniae Antigen (M - Final Urine, Clean Catch 09/24/18 17:10 Legionella Antigen - Final Urine, Clean Catch Discharge Activity: - - Avoid exposure to any strong smells such as bleach, cleaning products, strong colognes or perfumes, paint fumes and smoke of any kind. Avoid sudden exposure to cold air because this can cause bronchospasm. You may want to cover your mouth when you go outside in the winter. Avoid exposure to anyone who is sick with a cough or sore throat. Call your doctor if you observe: Fever of 101 or Higher, Shortness of breath, Dizziness, Fainting spells, Chest pain, Calf discomfort, - - Call your PCP if severe diarrhea ( > 5 stools a day), painful sores in the mouth, painful swallowing, rash or itching. Taking a probiotic such as Lactobacillus or Kefir can help with loose stools while taking antibiotics. Home Medications: Medications to take at Discharge Acetaminophen [Tylenol] 1,000 mg PO Q4H PRN PRN 09/24/18 Albuterol IH (ProAir) [Proair Hfa] 1 - 2 puff INHALATION Q4H PRN PRN #1 inhaler 09/27/18 Amoxicillin 875 mg PO BID #12 tablet 09/27/18 Guaifenesin [Mucinex] 1,200 mg PO BID #20 tablet 09/27/18 Venlafaxine XR [Effexor Xr] 75 mg PO DAILY #30 capsule 09/27/18 Following Prescrptions Were Given to Patient: Albuterol IH (ProAir) [Proair Hfa] 1 - 2 puff INHALATION Q4H PRN PRN #1 inhaler PRN Reason: Wheezing Venlafaxine XR [Effexor Xr] 75 mg PO DAILY #30 capsule Amoxicillin 875 mg PO BID #12 tablet Guaifenesin [Mucinex] 1,200 mg PO BID #20 tablet Primary Care Physician: Tez Lee MD [Primary Care Provider] - Please follow up with your Primary Care Physician in: 7-10 days Please Follow Up With: Wei Calloway, DO When: when you are able to get some insurance Patient Instructions: Tips for Quitting Smoking (Cardiovascular), What is COPD?, Chronic Lung Disease: Preventing Lung Infections, Resources for Chronic Lung Disease, Chronic Lung Disease: Tips for Quitting Smoking, Planning to Quit Smoking, Getting Support for Quitting Smoking Disposition: Home Minutes spent on discharge:: 35 Patient Condition:: Stable - Improved Medical Necessity - Tobacco Use Smoking Status: Current every day smoker Tobacco Use: Cigarettes Meaningful Use Info Meaningful Use Diagnoses (Choose all that apply): None applicable Code Visit Inpatient E&M: 39305 Disch Hosp
--- NOTE | 2018-09-28 15:43 | CASEMGMT ---
ALEJANDRA CM Discharge Follow-Up Phone Call. Lace:?13? Strata: 4 Discharge Date: 09-27-18 Adm Dx:? Pneumonia. Attempted discharge follow-up phone call. No answer. Message came on stating that voicemail has not been set up. Unable to leave message at this time. Papo BOSWELL RN CM ?
== END 2018-09-27 17:45 | disposition home or self-care (01) | DRG 194 ==
LOC: ED 13:46 → MS3 14:05
PROVIDERS: Admitting Provider Hospitalist; Emergency Provider Emergency Medicine; Family Provider Family Medicine; PCP Family Medicine; Visit Provider Internal Medicine
DX: J13 Pneumonia due to Streptococcus pneumoniae (principal); J44.1 Chronic obstructive pulmonary disease with (acute) exacerbation; H66.92 Otitis media, unspecified, left ear; E87.6 Hypokalemia; H72.92 Unspecified perforation of tympanic membrane, left ear; Z23 Encounter for immunization; M41.9 Scoliosis, unspecified; F17.210 Nicotine dependence, cigarettes, uncomplicated; R91.1 Solitary pulmonary nodule; R06.89 Other abnormalities of breathing
CPT/HCPCS: 36415; 71046; 71260; 80048; 81002; 83880; 84484; 85025; 87040; 87070; 87077; 87186; 87205; 87449; 87633; 87641; 93005; 94640; 94667; 94668; 97162; 97165; 97530; 99285; 99406; J7030; Q9967; 90670; 90686; A4216

== ENCOUNTER 2020-03-05 15:51 | Emergency (ER) | payer OTHER, SELFPAY ==
[2018-09-24 14:42] VITALS: BMI 22.1
[2020-03-05 15:52] VITALS: BP 193/95; PULSE 89; RESP 16; TEMP 36.2; O2SAT 97; BMI 28.3
--- NOTE | 2020-03-05 15:58 | ED.DCSUM_ITS ---
History of Present Illness Chief Complaint: Abd Pain Informant: Patient Narrative: 64-year-old female with history of IBS is presenting with left lower quadrant pain. She states that she has some episodes of this periodically however this 1 has been worse. Is been going on for couple of days. Notes a small amount of blood in her stool when she has a bowel movement and the pain comes when she tries to defecate. She has not seen a large amount of blood. She states she thought she was constipated a couple of days ago and took a Dulcolax stool softener. She has nausea without vomiting. She is not had a fever. She took ibuprofen prior to arrival which is helping a little bit. She states she is not on any medications. She denies any other problems but IBS. She does not have a PCP. Past Medical History - Allergies and Home Meds Allergies/Adverse Reactions: Allergies azithromycin Allergy (Verified 03/05/20 15:54) Hives cimetidine [From Tagamet] Allergy (Verified 03/05/20 15:54) Hives cimetidine HCl [From Tagamet] Allergy (Verified 03/05/20 15:54) Hives nitrofurantoin [From Macrodantin] Allergy (Verified 03/05/20 15:54) Hives MICRODANTIN Allergy (Uncoded 03/05/20 15:54) Hives Primary Care Physician: Tez Lee MD [NON-STAFF] - Prior records reviewed: Yes Surgical History: - - Spine surgery for scoliosis, pleurodesis for blebs and spontaneous pneumothorax Smoking Status: Current every day smoker - Family History Maternal Family History: Reports: Cancer, Heart Disease Paternal Family History: Reports: Heart Disease Review of Systems General: Denies: Chills, Fever Eyes: Denies: Visual changes - bilaterally, Diplopia ENT: Denies: Rhinorrhea, Sore throat Cardiovascular: Denies: Chest pain, Palpitations Respiratory: Denies: Dyspnea, Cough, Dyspnea on exertion Gastrointestinal: Reports: Abdominal pain, Nausea, Hematochezia Genitourinary: Denies: Dysuria Musculoskeletal: Denies: Myalgias, Arthralgias Skin: Denies: Rash Neurological: Denies: Headache, Weakness Physical Exam Vital Signs/Narrative: Vital Signs Temp Pulse Resp BP Pulse Ox 03/05/20 15:52 97.1 F L 89 16 193/95 H 97 General: Obese, No Acute Distress Head: Normocephalic, Atraumatic Eyes: Perrl. Negative for: Pale conjunctiva Cardiovascular: Regular rate, Regular rhythm Respiratory: No distress, CTA bilaterally Abdomen: - - There is to palpation left lower quadrant. Non-peritoneal. Back: Nontender Extremities: Nontender Skin: Normal color. Negative for: Pallor Neurological: Alert, Oriented x3 Psychological: Normal affect Diagnostic/Tx/Re-eval Clinical Impression(s) from Imaging Studies Abdomen/Pelvis CT 03/05/20 16:04 IMPRESSION: Acute diverticulitis of the sigmoid colon. Fatty infiltration of the liver. Atherosclerosis. Electronically Signed: Syl Kaur MD at 17:38 EDT Tel , Service support , Laboratory Data 03/05/20 03/05/20 03/05/20 16:27 16:27 17:00 WBC 8.1 RBC 4.79 Hgb 14.7 Hct 43.5 MCV 90.8 MCH 30.7 MCHC 33.8 RDW Std Deviation 40.4 RDW Coeff of Mary 12.2 Plt Count 327 MPV 8.8 Immature Gran % (Auto) 0.400 Neut % (Auto) 45.6 L Lymph % (Auto) 42.9 H [place] % (Auto) 7.8 Eos % (Auto) 2.6 Baso % (Auto) 0.7 Absolute Neuts (auto) 3.7 Absolute Lymphs (auto) 3.48 Nucleated RBC % 0 Sodium 136 Potassium 3.9 Chloride 105 Carbon Dioxide 27.0 Anion Gap 4 L BUN 10 Creatinine 0.82 Estim Creat Clear Calc 57.33 Est GFR (MDRD) Af Amer 90 Est GFR (MDRD) Non-Af 74 BUN/Creatinine Ratio 12.2 Glucose 195 H Calcium 9.3 Total Bilirubin 0.20 AST 19 ALT 26 Alkaline Phosphatase 177 H Total Protein 8.1 Albumin 3.1 L Globulin 5.0 H Albumin/Globulin Ratio 0.6 L Urine Color Yellow Urine Clarity Sl. Cloudy Urine pH 5.0 Ur Specific Council 1.010 Urine Protein 15 H Urine Glucose (UA) Normal Urine Ketones Negative Urine Occult Blood Negative Urine Nitrite Negative Urine Bilirubin Negative Urine Urobilinogen Normal Ur Leukocyte Esterase Negative Urine RBC 0 SEEN Urine WBC 0 SEEN Ur Squamous Epith Cells 0-5 SEEN Amorphous Sediment 1+ URATE Urine Bacteria 0 SEEN Urine Mucus 0 SEEN - Medical Decision Making Patient seen and evaluated on arrival. She is thought that she was having spasms but I was concerned for diverticulitis. She did have blood work which did appear normal. CT of the abdomen pelvis does show a mild uncomplicated diverticulitis. Given that her pain is well controlled and she has no red flag signs or symptoms I will start her on Augmentin with the first dose in the ED. She is counseled on return precautions. She is counseled on diet for diverticulitis. Impression: 1. Abdominal pain 2. Diverticulitis ED Disposition - Plan for ED Patient: Disposition: Home or Assisted Living Diagnosis: Diverticulitis Instructions: ED Diverticulitis Prescriptions: Amox/Clavulanate Tablet [Augmentin Tablet] 875 mg PO Q12H #20 tab Prescription Printed Referrals: Tez Lee MD [NON-STAFF] -
--- NOTE | 2020-03-05 16:04 | CT_ITS ---
STUDY: CT ABDOMEN AND PELVIS WITHOUT CONTRAST REASON FOR EXAM: Female, 64 years old. ABD PAIN WITH BLOODY BM/left lower quadrant PAIN RADIATION DOSAGE (If Supplied By Facility): CTDIvol = ( 15.34 ) mGy, DLP = ( 957.05 ) mGycm TECHNIQUE: Transaxial images were obtained from the dome of the diaphragm to the symphysis pubis without oral contrast, and without intravenous contrast. Sagittal and coronal images were reconstructed. Individualized dose optimization techniques were used for this CT. COMPARISON: 03-08-16 FINDINGS: The visualized lung bases are unremarkable. The visualized portions of the heart are within normal limits. There is decreased attenuation of the liver consistent with steatosis. There is non-visualization of the gallbladder, which may be secondary to either contraction or a prior cholecystectomy. Normal spleen. Normal pancreas. Normal bilateral adrenal glands. There are right renal cysts. Normal left kidney. Normal visualized stomach. Normal small intestine. There is diverticulosis, with thickening of the sigmoid colon wall, and pericolonic inflammation changes consistent with acute diverticulitis. The appendix is visualized and appears normal. There is diffuse atherosclerotic calcification of the abdominal aorta, without a demonstrated aneurysm. Normal inferior vena cava. Normal retroperitoneum. Normal urinary bladder. Normal abdominal wall. There are postsurgical changes of the visualized thoracic spine. There is a levoscoliosis of the thoracolumbar spine. CT/Abdomen/Pelvis W IV Cont ONLY IMPRESSION: Acute diverticulitis of the sigmoid colon. Fatty infiltration of the liver. Atherosclerosis. Electronically Signed: Syl Kaur MD at 17:38 EDT Tel , Service support ,
[2020-03-05] MEDS: Morphine 4 MG/ML Syringe IV (16:24)
[2020-03-05] MEDS: 0.9% Normal Saline 1,000 ML 1000 ML IV (16:25)
[2020-03-05] MEDS: Ondansetron 4 MG/2 ML Vial IV (16:25)
[2020-03-05 16:45] LABS: Absolute Lymphocyte Count 3.48 X10^3/uL (0.83-4.51); Absolute Neutrophil Count 3.7 X10^3/uL (2.0-7.7); Basophil# 0.06 X10^3/uL; Basophil% 0.7 % (0-1); Eosinophil# 0.21 X10^3/uL; Eosinophils% 2.6 % (0-5); Hematocrit 43.5 % (37-47); Hemoglobin 14.7 g/dL (12.0-15.0); Lymphocyte # 3.48 X10^3/ul (4.0); Lymphocyte % 42.9 % (19-41); Mean Corp Hgb Conc 33.8 g/dL (32-36); Mean Corpuscular Hgb 30.7 pg (27.0-32.0); Mean Corpuscular Volume 90.8 fL (81-99); Mean Platelet Vol. 8.8 fl (6.2-12.0); Monocyte# 0.63 X10^3/uL; Monocyte% 7.8 % (0-10); NRBC Flagged by Analyzer 0 % (0-5); Neutrophil % 45.6 % (47-70); Platelet Count 327 K/mm3 (150-450); RBC Distribution Width CV 12.2 % (11.6-14.6); RBC Distribution Width SD 40.4 fl (35.1-43.9); Red Blood Count 4.79 M/mm3 (4.2-5.4); White Blood Count 8.1 K/mm3 (4.4-11.0)
[2020-03-05 16:59] LABS: ALB/GLOB Ratio 0.6 RATIO (0.9-2.4); AST(SGOT) 19 U/L (15-37); Alanine Aminotransfer ALT/SGPT 26 U/L (13-56); Albumin, Serum 3.1 g/dL (3.2-5.0); Alkaline Phosphatase 177 U/L (45-117); Anion Gap 4 (5-15); BUN 10 mg/dL (7-18); BUN/Creat Ratio 12.2 RATIO (10-20); Calcium,Total 9.3 mg/dL (8.5-10.1); Chloride 105 mmol/L (98-107); Creatinine, Serum 0.82 mg/dL (0.55-1.02); EST Glomerular Filtration Rate 74 mL/min (>60); Est Glom Filt Rate - Afr Amer 90 mL/min (>60); Estimated Creatinine Clearance 57.33 ml/min; Glucose 195 mg/dL (74-106); Potassium 3.9 mmol/L (3.5-5.1); Protein, Total 8.1 g/dL (6.4-8.2); Sodium Level 136 mmol/L (136-145)
[2020-03-05 17:02] LABS: Bacteria 0 SEEN /hpf (None Seen); Mucous, Urine 0 SEEN /hpf (<or=2+); Red Blood Cells-Urine 0 SEEN /hpf (0-5); White Blood Cells 0 SEEN /hpf (0-5)
[2020-03-05 17:19] LABS: Color, Urine Yellow (Yellow); Glucose, Dipstick Normal (Normal); Ketone-Dipstick Negative (Negative); Leukocyte Esterase-Dipstick Negative /ul (Negative); Nitrite-Dipstick Negative (Negative); Occult Blood-Urine Negative /ul (Negative); Protein-Dipstick 15 mg/dl (Negative); Urine Bilirubin Dipstick Negative (Negative); Urine Clarity Sl. Cloudy (Clear); Urine Urobilinogen Normal (Normal)
[2020-03-05 17:22] LABS: Squamous Epithelial Cells - UA 0-5 SEEN /hpf (5-10)
[2020-03-05 17:23] LABS: Amorphous Sediment 1+ URATE
[2020-03-05 18:34] VITALS: BP 132/82; PULSE 82; RESP 15; O2SAT 96
[2020-03-05 18:35] VITALS: BP 132/82; PULSE 82; RESP 15; O2SAT 96
[2020-03-05] MEDS: Amox/Clavulanate 875 MG Tablet PO (18:45)
== END 2020-03-05 18:47 | disposition home or self-care (01) ==
PROVIDERS: Emergency Provider Student in an Organized Health Care Education/Training Program
DX: K57.32 Diverticulitis of large intestine without perforation or abscess without bleeding (principal); K58.9 Irritable bowel syndrome, unspecified; K76.0 Fatty (change of) liver, not elsewhere classified; F17.200 Nicotine dependence, unspecified, uncomplicated; Z82.49 Family history of ischemic heart disease and other diseases of the circulatory system; Z88.1 Allergy status to other antibiotic agents; Z88.8 Allergy status to other drugs, medicaments and biological substances
CPT/HCPCS: 74177; 80053; 81001; 82274; 85025; 96361; 96374; 96375; 99284; J7030; Q9967; J2405

== ENCOUNTER → 2021-12-30 | Outpatient (CLI) | payer MEDICARE, SELFPAY ==
--- NOTE | 2021-12-30 12:44 | CT_ITS ---
STUDY: LOW DOSE CT LUNG CANCER SCREENING REASON FOR EXAM: Female, 66 years old. FORMER SMOKER. Patient smokes 1 pack per day for 12 years. RADIATION DOSAGE (If Supplied By Facility): CTDIvol = ( 3.02 ) mGy, DLP = ( 109.10 ) mGycm TECHNIQUE: No contrast was administered. Low dose technique was utilized (average mAS-38 and kVp 120). 1.25 mm axial source images with a slice interval of 1.25-mm were reconstructed in lung windows. 2.5 mm axial source images with a slice interval of 2.5-mm were reconstructed in lung windows. 5.0 mm axial source images with a slice interval of 5.0-mm were reconstructed in soft tissue windows. COMPARISON: Comparison is made with prior study dated 09/25/2018. NODULES: The previously seen 6.8 mm noncalcified nodule in the anterior aspect of the right middle lobe has decreased in size. It presently measures 3.2 mm. Emphysema: Diffuse emphysematous changes. Marked degree of bullous formation in the right upper lobe. This is unchanged. Stable scarring in the left upper lobe with small bulla along the medial aspect. Stable mild scarring at the lung bases. There has been almost complete resolution of the previously seen bilateral groundglass appearance. Endobronchial lesion: None Aorta: Atherosclerotic plaque formation. CORONARY ARTERIES: Coronary artery calcification Heart: Remarkable Pulmonary artery: Unremarkable Mediastinal nodes: Unremarkable Other chest and abdominal findings: CT/Low Dose CT Lung Screening IMPRESSION: Lung-RADS category 2 - Continue annual screening with LDCT in 12 months. IMPORTANT NOTES FOR USE: ACR Lung-RADS Version 1.1 Assessment Categories Release Date: 2018 Category: Coded 0-4 bases on nodule(s) with highest degree of suspicion. Negative screen is defined as categories 1 and 2; a positive screen is defined as categories 3 and 4. Category 3 and 4A nodules that are unchanged on interval CT should be coded as category 2, and individuals returned to screening in 12 months. Category 4X: Category 3 or 4 nodules with additional imaging findings that increase the suspicion of lung cancer, such as spiculation, GGN that doubles in size in 1 year, enlarged lymph notes, etc. Category Modifiers: S (significant finding unrelated to lung cancer) Electronically Signed: Thee Vu MD at 13:38 EDT ,
== END | disposition home or self-care (01) ==
PROVIDERS: PCP Internal Medicine
DX: Z12.2 Encounter for screening for malignant neoplasm of respiratory organs (principal); J44.9 Chronic obstructive pulmonary disease, unspecified; F17.210 Nicotine dependence, cigarettes, uncomplicated
CPT/HCPCS: 71271

== ENCOUNTER 2023-05-15 10:04 | Emergency (ER) | payer MEDICARE, SELFPAY ==
[2023-05-15 10:05] VITALS: BP 158/106; PULSE 115; RESP 18; TEMP 36.6; O2SAT 98; BMI 27.3
--- NOTE | 2023-05-15 11:48 | EKG12_ITS ---
Test Reason : R ARM/SHOULDER PAIN Blood Pressure : / mmHG Vent. Rate : 091 BPM Atrial Rate : 091 BPM P-R Int : 138 ms QRS Dur : 072 ms QT Int : 380 ms P-R-T Axes : 063 -30 089 degrees QTc Int : 467 ms Normal sinus rhythm Left axis deviation Nonspecific ST and T wave abnormality Abnormal ECG Confirmed by LORENZO SCHROEDER, FRANK ([id number]), food editor SABINA ROBERSON ([id number]) on 05/19/2023 2:34:27 PM Referred By: Confirmed By:FRANK VENTURA MD
--- NOTE | 2023-05-15 11:50 | RAD_ITS ---
STUDY: X-RAY - RIGHT SHOULDER REASON FOR EXAM: Female, 67 years old. Injury/Pain TECHNIQUE: 4 view(s) of the shoulder. COMPARISON: None. FINDINGS: Normal glenohumeral articulation. There is mild degenerative arthrosis of the acromioclavicular joint without inferior osseous spur formation. Normal acromion. Normal humeral head and visualized proximal humerus. The soft tissue structures are unremarkable. Normal visualized pulmonary apex. RAD/Shoulder min 2 Views IMPRESSION: Mild degree of degenerative changes of the right acromioclavicular joint. Electronically Signed: Thee Vu MD at 12:58 EDT ,
--- NOTE | 2023-05-15 11:53 | EDS_ITS ---
HPI History of Present Illness Chief Complaint: Upper Extremity Injury Informant: patient Narrative Narrative: Today is 67-year-old female with history of COPD, diabetes mellitus, scoliosis with major back surgery as a 17-year-old and tobacco use senting with right- sided shoulder pain. She is been going on for about a week. She went to urgent care weekend and was prescribed Flexeril. States did not have radiology that day so she could get an x-ray. Has no improvement with the Flexeril. She also spent alternate Tylenol Motrin with no relief of her symptoms. She states the pain is worse with certain movements as well as deep breathing. It seems to com e from beneath her right shoulder blade and then radiate to her shoulder and then down her arm. She does have some associated paresthesias down her arm. She never had this before. She also been having some intermittent nausea. She not sure if that is associated with medications that she is been taking for her symptoms or something else. Denies any bowel symptoms. Notes she chronically feels short of breath but was more short of breath coming to the ER however she attributes that to walking up the hill. Denies any cough. Denies any fever or chills. Denies any swelling of her legs. Denies history of DVT or PE. No other complaints at this time. PFSH PFSH Home Medications amoxicillin 875 mg-potassium clavulanate 125 mg tablet 875 mg (0.875 x 875-125 mg) PO Q12H #20 tabs 03/05/20 [Rx Last Taken Unknown] tramadol 50 mg tablet 50 mg PO Q6H PRN pain #20 tabs 05/15/23 [Rx Last Taken Unknown] Allergy/AdvReac Type Severity Reaction Status Date / Time azithromycin Allergy Hives Verified 05/15/23 10:07 cimetidine [From Tagamet] Allergy Hives Verified 05/15/23 10:07 cimetidine HCl [From Tagamet] Allergy Hives Verified 05/15/23 10:07 nitrofurantoin Allergy Hives Verified 05/15/23 10:07 [From Macrodantin] Social History Smoking Status: Current every day smoker tobacco type: cigarettes ROS ROS ED Constitutional Constitutional ED: Denies chills or fever(s) Eyes Eyes: Denies change in vision Cardiovascular Cardiovascular: Denies chest pain or palpitations Respiratory/Chest Respiratory/Chest: Reports dyspnea on exertion; Denies cough or dyspnea Gastrointestinal Gastrointestinal: Reports nausea; Denies abdominal pain, constipation, diarrhea or vomiting Genitourinary Genitourinary ED: Denies dysuria Musculoskeletal Musculoskeletal: Reports back pain and other Details: right shoulder pain Integumentary Denies rash Neurologic Neurologic: Reports paresthesias RUE; Denies headache(s) Psychiatric Psychiatric: Denies anxiety Hematologic/Lymphatic Hematologic/Lymphatic: Denies easy bleeding or easy bruising EXAM Physical Exam Const Vital Signs: 05/15/23 10:05 Temperature 98 F Temperature Source Temporal Pulse Rate 115 H Respiratory Rate 18 Blood Pressure 158/106 H Blood Pressure Mean 123 Pulse Ox 98 Oxygen Delivery Method Room Air Positive well nourished and well developed General Appearance ED: well developed and NAD HEENT Reports moist mucous membranes Eyes PERRL and EOMs intact bilaterally Neck full ROM and supple Neck Narrative: No mid line tenderness. Mild lower right paraspinal tenderness to palpation Chest Wall inspection of chest normal and palpation of chest normal Chest Narrative: No chest wall crepitus appreciated Resp normal respiratory effort Resp Narrative: No wheezing appreciated. Mildly diminished breath sounds on the right side Cardio regular rate, regular rhythm and no murmurs GI non-tender and non-distended Back/Spine Back/Spine Narrative: Patient points to her right scapular area is an area of pain however is not reproducible on exam. Cervical Spine: Negative for cervical spine tenderness Thoracic Spine / Upper Back: Negative for thoracic spinal tenderness Extremity full ROM Extremity Narrative: Please deformity. No reproducible tenderness to palpation of the right shoulder diffusely. Patient has increased pain with internal rotation as well as internal abduction of the arm above the level of the shoulder. Normal intrinsic movements of the hand. Has reproduction of paresthesias with internal rotation of the Neuro oriented x3, moves all extremities, no focal motor deficits and no sensory deficits noted Sensorium / Orientation: alert, oriented to person, oriented to place and oriented to time Psych mental status grossly normal Skin Lesions: no lesions Rashes: no rashes MDM MDM MDM Narrative Medical decision making narrative: Is evaluated for atraumatic right shoulder pain. It seems to come from her shoulder blade. While it is reproducible with movement and seems to have almost a radicular component to it she also has worse symptoms with deep breathing and pulmonary risk factors. Because of that chest x-ray, D-dimer (low risk per Wells criteria), CMP, CBC as x-ray of the shoulder. Given a dose of Motrin for pain control. She is tachycardic on arrival. D- dimer is normal for age-adjusted. EKG does not show any acute ischemic changes I do not think she needs a troponin. Do not think this is referred cardiac pain. Chest x-ray does not show any acute process to explain her symptoms. This is interpreted by myself as well as radiology. Shoulder x- ray does show mild degree of degenerative change of the right AC joint. This could be contributing to her presentation. This is reviewed by myself as well as radiology. There is no fracture or dislocation present. Patient has improvement of pain on repeat evaluation. Will discharge home with a course of tramadol which she states she has tolerated in the past. Will be given referral for orthopedics. Has outpatient follow-up with her PCP on Monday of this week. Counseled that differential includes a cervical radiculopathy as well as a strain to her shoulder causing the pain. At this time I do not think she has referred pain from her lungs or other more severe process as a cause. She verbalizes given understand this plan. Will be given a sling for comfort. Is counseled on exercises to prevent frozen shoulder associated with wearing a sling. Discharged home in stable and improved condition. Rhythm Strip Rhythm Strip: Sinus Rhythm Rate: 91 Ectopy: None EKG Initial EKG: Attestation: I personally reviewed and interpreted this EKG as follows: Interpretation: Sinus Rhythm Comments: Normal sinus rhythm rate of 91 bpm Left axis deviation Normal intervals Nonspecific ST changes Compared to prior EKG on 09/24/2018, patient not have any significant changes Discharge Plan Triage Chief Complaint: Upper Extremity Injury ED Provider: Grazyna Goldsmith Dx/Rx/DC Orders Clinical Impression: Acute pain of right shoulder Instructions: ED Shoulder Impingement Syndrome, ED Shoulder Pain, Uncertain Cause Prescriptions: New tramadol 50 mg tablet 50 mg PO Q6H PRN (Reason: pain) Qty: 20 0RF No Action amoxicillin-pot clavulanate 875 MG tablet 875 mg PO Q12H Qty: 20 0RF Primary Care Provider: KRISTINA WOODWARD Referrals: Krystian Mcdonough DO [Med Staff - Active Staff] - 3-5 Days if not improving KRISTINA WOODWARD NP-C [Primary Care Provider] - Activity Restrictions/Additional Instructions: Suspect the pain is either coming from your neck and rating down to your arm or from the nerve that irritated your shoulder. Since you have not had improvement with ibuprofen and Tylenol we will put you on a short course of Ultram. Please follow-up with orthopedics as well as your primary care divider. Wear sling. Continue to use heat. You may continue to take [id number] medications as well for pain these will not interact. If you develop a hard time breathing or have a progression/worsening your symptoms please return to the emergency room. Disposition Disposition: Home, Self Care
[2023-05-15] MEDS: Ondansetron 4 MG/2 ML Vial IV (12:10)
[2023-05-15] MEDS: Morphine 4 MG/ML Syringe IV (12:10)
[2023-05-15 12:26] LABS: Absolute Lymphocyte Count 3.58 X10^3/uL (0.83-4.51); Absolute Neutrophil Count 4.5 X10^3/uL (2.0-7.7); Basophil# 0.09 X10^3/uL; Basophil% 0.9 % (0-1); Eosinophils% 4.2 % (0-5); Hematocrit 48.4 % (37-47); Hemoglobin 16.3 g/dL (12.0-15.0); Lymphocyte # 3.58 X10^3/ul (0.83-4.51); Lymphocyte % 37.4 % (19-41); Mean Corp Hgb Conc 33.7 g/dL (32-36); Mean Corpuscular Hgb 30.9 pg (27.0-32.0); Mean Corpuscular Volume 91.7 fL (81-99); Monocyte# 0.95 X10^3/uL; Monocyte% 9.9 % (0-10); NRBC Flagged by Analyzer 0 % (0-5); Neutrophil # 4.52 X10^3/uL (2.7-7.7); Neutrophil % 47.4 % (47-70); Platelet Count 322 K/mm3 (150-450); RBC Distribution Width CV 12.7 % (11.6-14.6); RBC Distribution Width SD 42.6 fl (35.1-43.9); Red Blood Count 5.28 M/mm3 (4.2-5.4); White Blood Count 9.6 K/mm3 (4.4-11.0)
--- NOTE | 2023-05-15 12:34 | RAD_ITS ---
STUDY: X-RAY CHEST REASON FOR EXAM: Female, 67 years old. SOB, right sided pain TECHNIQUE: PA and lateral views of the chest. COMPARISON: Comparison is made with prior study dated September 24, 2018. FINDINGS: EKG electrodes are seen. There is hyperinflation of the lungs consistent with chronic obstructive lung disease (COPD). Bullous formation in the right upper lobe. Pleural thickening in the left lung apex. Sutures are seen in the medial aspect of the left upper lobe. There is blunting of the left costophrenic angle with increased markings at the left lung base. This may represent either atelectasis and/or scarring. Normal size heart. Normal mediastinum and bel. Normal visualized pulmonary arteries. Normal visualized aortic arch and descending thoracic aorta. There is a dextroscoliosis of the thoracic spine. Smith jose fixation device is seen in the thoracic spine. Normal visualized ribs, clavicles, and shoulders. There is no demonstrated abnormality of the visualized soft tissue structures of the upper abdomen. RAD/Chest PA and Lateral IMPRESSION: Hyperinflation and bullous changes seen in the right upper lobe as well as scarring in the left lung apex. Surgical sutures are seen in the medial aspect of the left lung apex. Blunting of the left costophrenic angle with increased markings at the left lung base suggestive of either atelectasis and/or scarring. Electronically Signed: Thee Vu MD at 12:58 EDT ,
[2023-05-15] MEDS: 0.9% Normal Saline (1000mL) 1,000 ML 150 ML IV (12:41)
[2023-05-15 12:46] LABS: ALB/GLOB Ratio 0.7 RATIO (0.9-2.4); AST(SGOT) 50 U/L (15-37); Alanine Aminotransfer ALT/SGPT 48 U/L (13-56); Albumin, Serum 3.6 g/dL (3.2-5.0); Alkaline Phosphatase 146 U/L (45-117); Anion Gap 8 (5-15); BUN 13 mg/dL (7-18); BUN/Creat Ratio 15.5 RATIO (10-20); Chloride 105 mmol/L (98-107); Creatinine, Serum 0.84 mg/dL (0.55-1.02); EST Glomerular Filtration Rate 72 mL/min (>60); Est Glom Filt Rate - Afr Amer 87 mL/min (>60); Globulin 5.1 g/dL (2.2-4.2); Glucose 118 mg/dL (74-106); Lipase 20 U/L (13-75); Potassium 3.9 mmol/L (3.5-5.1); Protein, Total 8.7 g/dL (6.4-8.2); Sodium Level 139 mmol/L (136-145)
[2023-05-15 13:03] LABS: D-Dimer Quantitative (DVT/PE) 0.52 FEU/ug/m (0.27-0.49)
[2023-05-15] MEDS: traMADol 50 MG Tablet PO (15:07)
[2023-05-15 15:10] VITALS: BP 138/70; PULSE 82; RESP 16; O2SAT 99
== END 2023-05-15 15:13 | disposition home or self-care (01) ==
PROVIDERS: Emergency Provider Emergency Medicine; PCP Nurse Practitioner; Visit Provider Emergency Medicine
DX: M25.511 Pain in right shoulder (principal); E11.9 Type 2 diabetes mellitus without complications; M19.011 Primary osteoarthritis, right shoulder; J98.4 Other disorders of lung; R11.0 Nausea; F17.210 Nicotine dependence, cigarettes, uncomplicated
CPT/HCPCS: 71046; 73030; 80053; 83690; 85025; 85379; 93005; 96361; 96374; 96375; 99285; J7030; A4216; J2405

== ENCOUNTER → 2023-06-09 | Outpatient (CLI) | payer MEDICARE, SELFPAY ==
--- NOTE | 2023-06-09 12:00 | RAD_ITS ---
STUDY: CT CERVICAL SPINE WITH INTRATHECAL CONTRAST (CERVICAL CT MYELOGRAM) REASON FOR EXAM: Female, 67 years old. SPINAL STENOSIS -- -- 1 IMAGE, 151.82 MGY, 280 SEC RADIATION DOSAGE (If Supplied By Facility): CTDIvol = ( 19.66 ) mGy, DLP = ( 460.32 ) mGycm TECHNIQUE: Transaxial images were obtained following intrathecal administration of 15 ml of Isovue-M 300 contrast material, performed by Dr. Mirella Grayase refer to this physicians technical notes for procedural details. Coronal and sagittal reconstructions were obtained. Individualized dose optimization techniques were used for this CT. COMPARISON: Comparison is made with prior cervical myelogram done earlier today. FINDINGS: Normal craniovertebral junction. Normal anterior atlantoaxial articulation. Normal odontoid process. Normal cervical lordosis. Normal vertebral bodies and posterior osseous elements. C2-3: Normal endplates. Normal disc height and morphology. Normal central canal and bilateral intervertebral neural foramen. C3-4: Mild degree of anterior spondylosis. No significant stenosis seen. C4-5: Mild degree of disc space narrowing and spondylosis with disc degeneration. Posterior spondylosis causing deformity of the central portion of the neural sac without significant stenosis. Bilateral neural foraminal stenosis worse on the left side. C5-6: Mild degree of disc space narrowing and spondylosis. Posterior spondylosis causing minimal degree of the deformity of the neural sac slightly worse on the right side. C6-7: Mild degree of disc space narrowing. Facet joint osteoarthritis. Uncovertebral arthrosis. Bilateral neural foraminal stenosis worse on the left side. C7-T1: Normal endplates. Normal disc height and morphology. Normal bilateral uncovertebral and apophyseal joints. Normal central canal and bilateral intervertebral neural foramen. Normal cervical cord size and morphology. No demonstrated soft tissue abnormality. RAD/Cervical Myelogram IMPRESSION: This space narrowing and degeneration at the C4-C5 C5-C6 and C6-7 levels with a stenosis as described. Electronically Signed: Thee Vu MD at 14:05 EDT ,
--- NOTE | 2023-06-09 12:02 | CT_ITS ---
STUDY: CT CERVICAL SPINE WITH CONTRAST REASON FOR EXAM: Female, 67 years old. SPINAL STENOSIS RADIATION DOSAGE (If Supplied By Facility): CTDIvol = ( 19.66 ) mGy, DLP = ( 460.32 ) mGycm TECHNIQUE: High resolution transaxial imaging was performed following intravenous administration of 10 CC ISOVUE 300. Sagittal and coronal images were reconstructed. Individualized dose optimization techniques were used for this CT. COMPARISON: None FINDINGS: Please refer to the dictated report under the cervical myelogram CT/Spine Cervical WITH Contrast IMPRESSION: Please refer to the dictated report under the cervical myelogram procedure. Electronically Signed: Thee Vu MD at 14:19 EDT ,
[2023-06-09 12:20] VITALS: BP 145/94; PULSE 90; RESP 16; TEMP 36.9; O2SAT 93; BMI 26.6
[2023-06-09] MEDS: Lidocaine 2% (5ml sdv) 5 ML VIAL.MPF INFILT (12:50)
[2023-06-09 13:31] VITALS: BP 182/80; PULSE 99; RESP 16; O2SAT 96
[2023-06-09 13:45] VITALS: BP 173/74; PULSE 92; RESP 16; O2SAT 97
[2023-06-09 14:02] VITALS: BP 164/77; PULSE 99; RESP 16; O2SAT 97
== END | disposition home or self-care (01) ==
PROVIDERS: PCP Nurse Practitioner; Referring Provider Physician Assistant Surgical; Visit Provider Physician Assistant Surgical
DX: M54.2 Cervicalgia (principal); M54.12 Radiculopathy, cervical region; M48.02 Spinal stenosis, cervical region
CPT/HCPCS: 62302; 72126

== ENCOUNTER → 2023-07-19 | Outpatient (CLI) | payer MEDICARE, SELFPAY ==
--- NOTE | 2023-07-19 12:56 | NEURO ---
NCS and/or EMG Patient Report Ordering Doctor: Tez Lance DATE OF SERVICE: 07/19/23 Sharona presents for electrodiagnostic testing of the right upper limb. She reports intermittent pain around the neck and right shoulder with intermittent numbness in the hand. Electrodiagnostic findings: Right median motor nerve demonstrates normal distal latency, amplitude and conduction velocity. Right ulnar motor nerve demonstrates normal distal latency, amplitude with normal conduction velocity across the elbow. Normal median and ulnar F?waves. Borderline prolonged right median sensory latency. Needle EMG testing was performed in the right upper limb. All muscles tested showed no evidence of denervation with normal motor unit action potentials. Electrodiagnostic impression: This is a normal electrodiagnostic study of the right upper limb. There is no electrodiagnostic evidence for peripheral neuropathy or cervical radiculopathy. Multi Select Codes Neurology Neurology Interp Codes: 23622-40 Musc test done w/n test comp (interp) and 28257-76 Nrv cndj test 7-8 studies (interp)
== END | disposition home or self-care (01) ==
LOC: PSN 10:23
PROVIDERS: PCP Nurse Practitioner; Referring Provider Orthopaedic Surgery; Visit Provider Orthopaedic Surgery
DX: M54.12 Radiculopathy, cervical region (principal); R20.2 Paresthesia of skin
CPT/HCPCS: 95886; 95910